=== PATIENT | female | born 1945 | race Caucasian/White ===

== ENCOUNTER 2024-07-28 13:35 | Inpatient (IN) | payer MEDICARE, MEDICAID, SELFPAY ==
[2024-07-28] VITALS (25 sets, daily range): BP systolic 169–186; BP diastolic 77–93; PULSE 91–104; RESP 19–24; TEMP 36.4–36.9; O2SAT 94–98; BMI 19.5
--- NOTE | 2024-07-28 13:40 | XR_ITS ---
WS: [id number] Exam: XR abdomen 1V* [id number] Date/Time of Exam: 07/28/2024 1:48 PM Reason For Exam: abd pain No acute bowel obstruction or pneumoperitoneum. No sign of organ enlargement. An opaque catheter appe ars to be looped in the pelvis. Significance is undetermined. Signs of prior cholecystectomy. Single mildly dilated bowel loop seen in the RIGHT abdomen and pelvis that might represent localized ileus. Degenerative changes and mild levoscoliosis of the lumbar spine. XR/XR abdomen 1V* [id number] IMPRESSION: 1. Single dilated bowel loop in the RIGHT lower abdomen and pelvis that might r epresent localized ileus. No acute process noted at this time.
--- NOTE | 2024-07-28 14:02 | ED_ITS ---
HPI - GI Bleed 2 General: Chief complaint: GI Bleed Stated complaint: bloody stool Time Seen by Provider: 07/28/24 13:37 History of Present Illness: 78-year-old female with history of end-s tage renal disease on peritoneal dialysis, light chain amyloidosis, dementia, anxiety, type 2 diabetes, SLE, history of bowel resection and short gut, who presents to the emergency room by ambulance from [facility] with abdominal pain, nausea, some vomiting and concern for black stools with possible blood. She is oriented to herself. Not to place. She does have dementia listed in her history. No focal motor deficits. Currently she complains of some mild pain in her left lower abdomen. She says this is associated with her peritoneal dialysis catheter. Worse at night. Had improved after they pulled some fluid off recently. Related Data Home Medications Medication Instructions Recorded Confirmed acetaminophen 325 mg tablet 650 mg PO QID PRN Pain 07/28/24 07/28/24 alprazolam 0.5 mg tablet 0.5 mg PO BEDTIME PRN Anxiety 07/28/24 07/28/24 amlodipine 10 mg tablet 10 mg PO DAILY 07/28/24 07/28/24 aspirin 81 mg chewable tablet 81 mg PO DAILY 07/28/24 07/28/24 bisacodyl 10 mg rectal suppository See Rx Instructions .Route 07/28/24 07/28/24 (Dulcolax (bisacodyl)) .COMPLEX PRN Constipation diphenoxylate-atropine 2.5 1 tab PO QID PRN Diarrhea/loose 07/28/24 07/28/24 mg-0.025 mg tablet stools gentamicin 0.1 % topical cream See Rx Instructions .Route .COMPLEX 07/28/24 07/28/24 heparin (porcine) 1,000 unit/mL See Rx Instructions .Route .COMPLEX 07/28/24 07/28/24 injection solution hydralazine 25 mg tablet 25 mg PO Q6H PRN bp 07/28/24 07/28/24 hydroxyzine HCl 25 mg tablet 25 mg PO BEDTIME 07/28/24 07/28/24 qhbumi-nfrrhdkv-ssqhgcm 1 cap PO TID 07/28/24 07/28/24 6,000-19,000-30,000 unit capsule,delayed rel (Creon) menthol 0.44 %-zinc oxide 20.6 % See Rx Instructions .Route .COMPLEX 07/28/24 07/28/24 topical ointment (Calmoseptine) pantoprazole 40 mg tablet,delayed 40 mg PO QAM 07/28/24 07/28/24 release potassium chloride 20 mEq 20 meq PO DAILY 07/28/24 07/28/24 tablet,extended release(part/cryst) promethazine 25 mg tablet 25 mg PO BID PRN nausea/emesis 07/28/24 07/28/24 sertraline 25 mg tablet 25 mg PO BEDTIME 07/28/24 07/28/24 sodium bicarbonate 650 mg tablet 1,300 mg PO DAILY 07/28/24 07/28/24 tizanidine 2 mg tablet 2 mg PO Q8H PRN Spasms 07/28/24 07/28/24 vitamin B complex-vitamin C-folic 1 tab PO DAILY 07/28/24 07/28/24 acid 0.8 mg tablet (Nephro-Cayden) Allergies Allergy/AdvReac Type Severity Reaction Status Date / Time cyclobenzaprine Allergy Unknown Verified 07/28/24 13:55 hydrocodone Allergy Unknown Verified 07/28/24 13:55 lisinopril Allergy Unknown Verified 07/28/24 13:55 ondansetron Allergy Unknown Verified 07/28/24 13:55 Ppvyirm-UDH-EhP Reductase Allergy Unknown Verified 07/28/24 13:55 Inhibitor codeine sulfate Allergy Unknown Uncoded 07/28/24 13:55 Review of Systems 2 Narrative: Constitutional symptoms: Negative except as documented in HPI. Skin symptoms: Negative except as documented in HPI. Eye symptoms: Negative except as documented in HPI. ENMT symptoms: Negative except as documented in HPI. Respiratory symptoms: Negative except as documented in HPI. Cardiovascular symptoms: Negative except as documented in HPI. Gastrointestinal symptoms: Negative except as documented in HPI. Genitourinary symptoms: Negative except as documented in HPI. Musculoskeletal symptoms: Negative except as documented in HPI. Neurologic symptoms: Negative except as documented in HPI. Psychiatric symptoms: Negative except as documented in HPI. Endocrine symptoms: Negative except as documented in HPI. Physical Exam 2 Narrative: EXAM NARRATIVE: General: Alert, no acute distress. Skin: Warm, dry. Head: Normocephalic, atraumatic. Neck: Supple, trachea midline. Eye: Extraocular movements are intact. Ears, nose, mouth and throat: mucosa moist. Cardiovascular: Regular, Normal peripheral perfusion. Respiratory: Lungs are clear to auscultation, respirations are non-labored, breath sounds are equal, Symmetrical chest wall expansion. Gastrointestinal: Soft, Nontender, Non distended Musculoskeletal: Normal ROM, no deformity. Neurological: Alert and oriented to herself but not place, No focal neurological deficit observed. Psychiatric: Cooperative, appropriate mood & affect. Course 2 Vital Signs: Vital signs: Vital Signs Temperature 97.5 F L 07/28/24 13:38 Pulse Rate 91 07/28/24 13:38 Respiratory Rate 24 H 07/28/24 13:38 Blood Pressure 177/80 07/28/24 15:25 Pulse Oximetry 95 07/28/24 15:25 Oxygen Delivery Me thod Room Air 07/28/24 13:38 MDM - GI Bleed Medical Decision Making Medical decision making: Differential diagnosis including but not limited to and based on the above HPI, review of systems and physical exam: In a patient with upper GI bleeding would have concern for upper gi bleed from varices or ulcer. Concern for anemia. Concern for liver disease. concern for anticoagulation. Orders placed to evaluate differential diagnosis based on the above differential, HPI and physical exam Abdomen x-ray: Nonspecific bowel gas pattern. There is a pocket of air in the right upper quadrant. No evidence of free air or obstruction. This was reviewed and interpreted by myself the emergency room physician. I also reviewed the radiology report. Lab Review: Laboratory results were reviewed and interpreted by myself the emergency room physician. Patient does have some leukocytosis with a white count of 16,000. Hemoglobin is 9.6. I do not have any previous lab work so I have nothing to compare to if she has any new anemia. Potassium is low at 2.8. However she is on dialysis so I am going to defer to hospitalist or agricultural economics teacher on replacement of this. BUN and creatinine are 48 and 5.1. This could be her baseline but again I do not have any comparison labs. I reviewed the patient's medical record. Reexamination: Patient remained stable. No increased work of breathing. No altered mental status. No focal motor deficits. Consultation: I spoke with Dr. Archibald who is on-call for the hospitalist service. He agrees to admission to observation. Assessment and plan: End-stage renal disease on peritoneal dialysis Upper GI bleeding Hypokalemia ?Difficult to say if she actually has had an upper GI bleed. Occult was negative here. Unknown baseline labs so observing and recheck labs. IV Protonix given here in the emergency room -I discussed the patient with the hospitalist on-call who is admitting the patient. - Discussed findings and plan with patient. Answered any questions. - All laboratory values were reviewed and interpreted personally by myself, the ER physician - All imaging was reviewed and interpreted personally by myself, the ER physician. - Evaluation and treatment of this problem were appropriate in the emergency setting Lab Data 07/28/24 14:11 07/28/24 14:11 Radiology Impressions Abdomen X-Ray 07/28/24 13:40 IMPRESSION: 1. Single dilated bowel loop in the RIGHT lower abdomen and pelvis that might represent localized ileus. No acute process noted at this time. Laboratory Results WBC 16.36 10^3/uL (3.29-11.43) H 07/28/24 14:11 RBC 2.90 10^6/uL (3.85-5.65) L 07/28/24 14:11 Hgb 9.60 g/dL (11.27-16.99) L 07/28/24 14:11 Hct 28.7 % (36-47) L 07/28/24 14:11 MCV 99.0 fl (85-98) H 07/28/24 14:11 MCH 33.1 pg (27-33) H 07/28/24 14:11 MCHC 33.4 g/dL (30-55) 07/28/24 14:11 RDW 15.2 % (12.1-15.1) H 07/28/24 14:11 Plt Count 576 10^3/cmm (157-399) H 07/28/24 14:11 MPV 10.1 fL (7.4-10.4) 07/28/24 14:11 Neut % (Auto) 76.7 % 07/28/24 14:11 Lymph % (Auto) 13.1 % 07/28/24 14:11 Lewis % (Auto) 9.0 % 07/28/24 14:11 Eos % (Auto) 0.2 % 07/28/24 14:11 Baso % (Auto) 0.2 % 07/28/24 14:11 Neut # (Auto) 12.53 10^3/uL (1.8-7.7) H 07/28/24 14:11 Lymph # (Auto) 2.2 10^3/uL (0.8-4.8) 07/28/24 14:11 Lewis # (Auto) 1.5 10^3/uL (0.2-0.9) H 07/28/24 14:11 Eos # (Auto) 0.0 10^3/uL (0.0-0.8) 07/28/24 14:11 Baso # (Auto) 0.0 10^3/uL (0.0-0.1) 07/28/24 14:11 Nucleated RBC % (auto) 0.8 % 07/28/24 14:11 Nucleated RBCs # 0.1 /100WBC 07/28/24 14:11 PT 15.50 SECONDS (12.1-14.9) H 07/28/24 14:11 INR 1.19 (0.8-1.2) 07/28/24 14:11 APTT 34.1 SECONDS (23.9-36.7) 07/28/24 14:11 Sodium 136 mmol/L (136-145) 07/28/24 14:11 Potassium 2.8 mmol/L (3.5-5.1) L* 07/28/24 14:11 Chloride 95 mmol/L (98-107) L 07/28/24 14:11 Carbon Dioxide 26 mmol/L (22-29) 07/28/24 14:11 Anion Gap 17.8 (5-19) 07/28/24 14:11 BUN 48 mg/dL (8-23) H 07/28/24 14:11 Creatinine 5.1 mg/dL (0.5-0.9) H 07/28/24 14:11 GFR Calculation Not Reportable 07/28/24 14:11 Glucose 113 mg/dL (65-115) 07/28/24 14:11 Calculated Osmolality 295 mOsm/kg (285-295) 07/28/24 14:11 Lactic Acid 1.9 mmol/L (0.5-2.2) 07/28/24 14:11 Calcium 8.9 mg/dL (8.5-10.5) 07/28/24 14:11 Phosphorus 3.5 mg/dL (2.5-4.5) 07/28/24 14:11 Magnesium 1.4 mg/dL (1.7-2.3) L 07/28/24 14:11 Total Bilirubin 0.4 mg/dL (0.15-1.2) 07/28/24 14:11 AST 35 U/L (0-32) H 07/28/24 14:11 ALT 21 U/L (0-33) 07/28/24 14:11 Alkaline Phosphatase 125 U/L (35-105) H 07/28/24 14:11 Total Protein 7.1 g/dL (6.6-8.7) 07/28/24 14:11 Albumin 2.7 g/dL (3.5-5.2) L 07/28/24 14:11 Globulin 4.4 g/dL (1.3-4.6) 07/28/24 14:11 Lipase 428 U/L (13-60) H 07/28/24 14:11 Blood Type A Negative 07/28/24 14:11 Rho(D) Type Rh negative 07/28/24 14:11 Antibody Screen Negative 07/28/24 14:11 All radiology interpretation(s) finalized by discharge Discharge Plan Discharge Patient Disposition: Placed in Observation Admit Provider: Luke Archibald Clinical Impression: Upper gastrointestinal hemorrhage, End stage renal disease on dialysis, Dementia, Type 2 diabetes mellitus, Hypertension Coding Level of Care Code ED Young Adult Librarian for Sergio Ramirez
[2024-07-28 14:24] LABS: Basophils % 0.2 %; Eosinophils % 0.2 %; Hematocrit 28.7 % (36-47); Lymphocytes # 2.2 10^3/uL (0.8-4.8); Lymphocytes % 13.1 %; Mean Corpuscular HGB Conc 33.4 g/dL (30-55); Mean Corpuscular Hemoglobin 33.1 pg (27-33); Mean Platelet Volume 10.1 fL (7.4-10.4); Monocytes # 1.5 10^3/uL (0.2-0.9); Neutrophils # 12.53 10^3/uL (1.8-7.7); Neutrophils % 76.7 %; Nucleated Red Blood Cells # 0.1 /100WBC; Nucleated Red Blood Cells % 0.8 %; Platelet Count 576 10^3/cmm (157-399); Red Cell Distribution Width 15.2 % (12.1-15.1); White Blood Count 16.36 10^3/uL (3.29-11.43)
[2024-07-28 14:46] LABS: INR 1.19 (0.8-1.2)
[2024-07-28 14:47] LABS: Lactic Sepsis W/Reflex 1.9 mmol/L (0.5-2.2); Partial Thromboplastin Time 34.1 SECONDS (23.9-36.7)
[2024-07-28 14:48] LABS: Alanine Aminotransferase 21 U/L (0-33); Albumin Level 2.7 g/dL (3.5-5.2); Alkaline Phosphatase 125 U/L (35-105); Anion Gap 17.8 (5-19); Aspartate Amino Transferase 35 U/L (0-32); Blood Urea Nitrogen 48 mg/dL (8-23); Calcium 8.9 mg/dL (8.5-10.5); Carbon Dioxide 26 mmol/L (22-29); Chloride 95 mmol/L (98-107); Creatinine Clr Calc Pharmacy 7.4955; Globulin 4.4 g/dL (1.3-4.6); Glucose 113 mg/dL (65-115); Magnesium 1.4 mg/dL (1.7-2.3); Osmolality Calculated 295 mOsm/kg (285-295); Phosphorus 3.5 mg/dL (2.5-4.5); Sodium 136 mmol/L (136-145); Total Bilirubin 0.4 mg/dL (0.15-1.2); Total Protein 7.1 g/dL (6.6-8.7)
[2024-07-28 14:50] LABS: Potassium 2.8 mmol/L (3.5-5.1)
[2024-07-28 14:55] LABS: Lipase 428 U/L (13-60)
--- NOTE | 2024-07-28 15:31 | PC.NURSE ---
PT HAD SMALL BROWN BM AT BEDSIDE. NO BLOOD NOTED. HEMOCCULT TEST NEGATIVE. DR. OCASIO NOTIFIED
--- NOTE | 2024-07-28 15:49 | CTR_ITS ---
PROCEDURE INFORMATION: Exam: CT Abdomen And Pelvis With Contrast Exam date and time: 07/28/2024 4:10 PM Age: 78 years old Clinical indication: Abdominal pain TECHNIQUE: Imaging protocol: Computed tomography of the abdomen and pelvis with contrast. Radiation optimization: All CT scans at this facility use at least one of these dose optimization techniques: automated exposure control; mA and/or kV adjustment per patient size (includes targeted exams where dose is matched to clinical indication); or iterative reconstruction. Contrast material: OMNI 350; Contrast volume: 75 ml; Contrast route: INTRAVENOUS (IV); COMPARISON: CR XR abdomen 1V* [id number] 07/28/2024 1:51 PM RADIATION DOSE METRICS: Total DLP (mGy-cm): 305.37 FINDINGS: Tubes, catheters and devices: Peritoneal dialysis catheter is in position through the left abdomen. This is likely the cause of the perihepatic and perisplenic fluid collections. Lungs: Scarring in the left lung base. Liver: The liver is unremarkable. Gallbladder and biliary ducts: Post cholecystectomy. Pancreas: Pancreas is unremarkable. No ductal dilation or peripancreatic inflammation. Spleen: The spleen is unremarkable. Adrenal glands: Adrenal glands are unremarkable. Kidneys and ureters: No hydronephrosis or nephrolithiasis. The left kidney is smaller than the right. Bilateral simple renal cysts are present, as well as other subcentimeter hypodensities which are too small to characterize. Stomach and bowel: Stomach is not fully distended. Small hiatal hernia. Small and large bowel are normal in caliber without evidence of obstruction. There is fluid in the colon indicating diarrhea. Postop changes in the bowel with intact anastomotic sites. Appendix: Appendix is not visualized. Intraperitoneal space: Small perihepatic fluid collection. Small perisplenic fluid collection. There is no free intraperitoneal gas. Mild haziness to the mesentery likely secondary to the peritoneal dialysis. Vasculature: There is no aortic aneurysm. There is severe atherosclerotic disease. Lymph nodes: No pathologically enlarged lymph nodes (by short axis size criteria). Urinary bladder: No focal wall thickening of the urinary bladder. Reproductive: There has been a hysterectomy. No adnexal cysts or masses are identified. Bones/joints: No acute osseous abnormality. There is degenerative disease of the spine. Soft tissues: Unremarkable. CT/CT abdomen pelvis w con* [id number] IMPRESSION: 1. No acute findings. 2. Peritoneal dialysis with small perihepatic and perisplenic fluid collections. COMMENTS: Consistent with the [employer]'s Incidental Findings Committee white paper (J Am Luc Radiol 2018): Any incidental renal lesion less than 1 cm or classified as too small to characterize, or any incidental cystic renal lesion characterized as simple-appearing, is likely benign. No follow-up imaging is recommended for these lesions per consensus recommendations based on imaging criteria.
[2024-07-28] MEDS: iohexol 350 mg/mL 500 mL Btl (per mL) IV (16:12)
--- NOTE | 2024-07-28 16:20 | PC.NURSE ---
Per nurse at [facility], staff typically starts her PD regimen at 20:00.
[2024-07-28] MEDS: pantoprazole 40 mg SDV 80 MG IVP (16:24)
[2024-07-28 16:26] LABS: C Reactive Protein 32.7 mg/L (0.0-4.9)
[2024-07-28 16:33] LABS: Procalcitonin 0.25 ng/mL (0-0.5)
--- NOTE | 2024-07-28 16:36 | P.HP_ITS ---
Providers/Chief Complaint 2 Admitting Physician: Luke Archibald MD Primary Care Provider: Asif Grijalva Chief Complaint: bloody stool History of Present Illness Ashleigh Adan is a 78 year old female with a past medical history of colon cancer status post colectomy, end-stage renal disease on peritoneal dialysis, light chain amyloidosis, anxiety disorder, history of hepatitis C, history of type 2 diabetes mellitus, history of lupus, who presents to [facility] due to abdominal pain, nausea, vomiting, diarrhea, complaints of bloody stools, complaints of coffee-ground emesis, black tarry stools with blood throughout the last week. Currently patient is alert to person, to place, not to time she follows all commands. Currently patient is complaining of weakness, fatigue, abdominal pain in the lower abdomen. She denies any fevers, no chills, no lightheadedness, no dizziness. Does report poor appetite. She does report she has had a appendectomy. Reports bloody stools. Reports black tarry vomit. Spoke to [facility], [facility], nursing staff at [facility] report that she has been at [facility] since September, she was hospitalized at an outside hospital for reasons unknown, she did leave [place] from [facility] sometime thereafter, and eventually got readmitted due to weakness, since being at the [facility], for the last 2 weeks she has been complaining of nausea, vomiting, abdominal pain weakness, fatigue she has had intermittent coffee-ground emesis, black tarry stools at times, this morning she continued to have abdominal pain so she wanted to come to [facility] for further evaluation Review of Systems 2 Const: Denies: fever(s) or chills Eyes: Denies: change in vision Card: Denies: chest pain Resp: Denies: dyspnea GI: Reports: abdominal pain, nausea and vomiting : Denies: flank pain Musc: Denies: neck pain Neuro: Denies: headache(s) Medications/Allergies Home Medications Medication Instructions Recorded Confirmed Last Taken Type acetaminophen 325 mg tablet 650 mg PO QID PRN Pain 07/28/24 07/28/24 07/24/24 History alprazolam 0.5 mg tablet 0.5 mg PO BEDTIME PRN Anxiety 07/28/24 07/28/24 07/24/24 History amlodipine 10 mg tablet 10 mg PO DAILY 07/28/24 07/28/24 07/28/24 History aspirin 81 mg chewable tablet 81 mg PO DAILY 07/28/24 07/28/24 07/28/24 History bisacodyl 10 mg rectal suppository See Rx Instructions .Route 07/28/24 07/28/24 Unknown History (Dulcolax (bisacodyl)) .COMPLEX PRN Constipation diphenoxylate-atropine 2.5 1 tab PO QID PRN Diarrhea/loose 07/28/24 07/28/24 07/23/24 History mg-0.025 mg tablet stools gentamicin 0.1 % topical cream See Rx Instructions .Route .COMPLEX 07/28/24 07/28/24 07/27/24 History heparin (porcine) 1,000 unit/mL See Rx Instructions .Route .COMPLEX 07/28/24 07/28/24 07/20/24 History injection solution hydralazine 25 mg tablet 25 mg PO Q6H PRN bp 07/28/24 07/28/24 Unknown History hydroxyzine HCl 25 mg tablet 25 mg PO BEDTIME 07/28/24 07/28/24 07/27/24 History ptycyq-cbsqgsfz-bqlwiah 1 cap PO TID 07/28/24 07/28/24 07/28/24 History 6,000-19,000-30,000 unit capsule,delayed rel (Creon) menthol 0.44 %-zinc oxide 20.6 % See Rx Instructions .Route .COMPLEX 07/28/24 07/28/24 07/27/24 History topical ointment (Calmoseptine) pantoprazole 40 mg tablet,delayed 40 mg PO QAM 07/28/24 07/28/24 07/28/24 History release potassium chloride 20 mEq 20 meq PO DAILY 07/28/24 07/28/24 07/28/24 History tablet,extended release(part/cryst) promethazine 25 mg tablet 25 mg PO BID PRN nausea/emesis 07/28/24 07/28/24 07/25/24 History sertraline 25 mg tablet 25 mg PO BEDTIME 07/28/24 07/28/24 07/27/24 History sodium bicarbonate 650 mg tablet 1,300 mg PO DAILY 07/28/24 07/28/24 07/28/24 History tizanidine 2 mg tablet 2 mg PO Q8H PRN Spasms 07/28/24 07/28/24 07/24/24 History vitamin B complex-vitamin C-folic 1 tab PO DAILY 07/28/24 07/28/24 07/28/24 History acid 0.8 mg tablet (Nephro-Cayden) Allergies Allergy/AdvReac Type Severity Reaction Status Date / Time cyclobenzaprine Allergy Unknown Verified 07/28/24 13:55 hydrocodone Allergy Unknown Verified 07/28/24 13:55 lisinopril Allergy Unknown Verified 07/28/24 13:55 ondansetron Allergy Unknown Verified 07/28/24 13:55 Uvkgkdg-JHG-FhL Reductase Allergy Unknown Verified 07/28/24 13:55 Inhibitor codeine sulfate Allergy Unknown Uncoded 07/28/24 13:55 PFSH Acute 2 PFSH: Medical History (Updated 07/28/24 @ 16:41 by Luke Archibald MD) History of colon cancer Type 2 diabetes mellitus Surgical History (Updated 07/28/24 @ 16:39 by Luke Archibald MD) History of colectomy Social History (Updated 07/28/24 @ 16:39 by Luke Archibald MD) Smoking and tobacco/nicotine status: never used tobacco/nicotine Alcohol intake: never Substance/Drug Use: never Vitals/I&O/Wt Last Vital Signs Temp 97.5 F L 07/28/24 13:38 Pulse 91 07/28/24 13:38 Resp 24 H 07/28/24 13:38 BP 177/80 07/28/24 15:25 Pulse Ox 95 07/28/24 15:25 O2 Del Method Room Air 07/28/24 13:38 Weight last 48 hrs Weight 49.895 kg Physical Exam 2 Const: COMMON NORMALS: no acute distress and patient oriented x3 HENMT: COMMON NORMALS: normocephalic HEAD & SCALP: normocephalic Resp: COMMON NORMALS: normal respiratory effort, No retractions, No use of accessory muscles and clear to auscultation bilaterally AUSCULTATION: clear to auscultation bilaterally Cardio: COMMON NORMALS: regular rate, regular rhythm, S1 normal heart sound present and S2 normal heart sound present RATE: regular rate RHYTHM: r egular rhythm HEART SOUNDS: S1 normal heart sound present and S2 normal heart sound present GI: OTHER: Abdomen is soft, slightly distended, good bowel sounds, does have diffuse tenderness to palpation, no guarding, no rebound, rigidity Extremity: COMMON NORMALS: no calf tenderness and no pedal edema Neuro: COMMON NORMALS: patient oriented x3, CN's II-XII intact bilaterally and moves all extremities Psych: COMMON NORMALS: mental status grossly normal Data 07/28/24 14:11 07/28/24 14:11 Micro: Microbiology 07/28/24 14:11 Blood Culture - Preliminary Blood SPECIMEN COLLECTED 07/28/24 13:55 Blood Culture - Preliminary Blood SPECIMEN COLLECTED A&P Assessment and plan (1) GI bleed: (2) Abdominal pain: (3) Leukocytosis: (4) Acute anemia: Plan GI bleed -Complaints of black tarry stools, vomiting coffee-ground emesis -She is on aspirin -Hemoglobin 9.6 Plan -Monitor closely -Monitor hemoglobin every 6 hours -Protonix -Carafate -Transfuse hemoglobin if less than 7 -Full code -SCDs for DVT prophylaxis Abdominal pain -Elevated leukocytosis, elevated lipase, elevated CRP Plan -CT scan abdomen pelvis with IV contrast Acute anemia # Iron studies, ferritin, Hemoccult stool Type 2 diabetes mellitus, low-dose sliding scale History of PD dialysis, PD catheter in place, start PD tonight Attestations 2 Medical Necessity Statement*: Patient requires hospitalization, inpatient, greater than 2 midnights, for GI bleed, abdominal pain, leukocytosis, and anemia Diagnoses GI bleed K92.2 Abdominal pain R10.9 Leukocytosis D72.829 Acute anemia D64.9
--- NOTE | 2024-07-28 16:45 | XRR_ITS ---
PROCEDURE INFORMATION: Exam: XR Chest Exam date and time: 07/28/2024 6:45 PM Age: 78 years old Clinical indication: Shortness of breath; Additional info: SOB TECHNIQUE: Imaging protocol: Radiologic exam of the chest. Views: 1 view. COMPARISON: CT abdomen pelvis w con* [id number] 07/28/2024 4:10 PM FINDINGS: Lungs: Diffuse interstitial disease. Calcified granulomas. No focal consolidation or other acute appearing pulmonary opacity. Pleural spaces: No pleural effusion or pneumothorax noted. Heart/Mediastinum: There is no cardiomegaly. Bones/joints: No acute osseous abnormality. Intraperitoneal space: There is no free intraperitoneal gas. XR/XR chest 1V portable [id number] IMPRESSION: No acute cardiopulmonary disease.
[2024-07-28 16:48] LABS: Gamma Glutamyl Transferase 55 U/L (5-36)
[2024-07-28 17:06] LABS: Glucose Point of Care 86 mg/dL (70-110)
[2024-07-28] MEDS: sucralfate 1 gm/10 mL Oral Liq UDC PO ×2 (17:08→22:45)
[2024-07-28] MEDS: sodium chloride 0.9% 1,000 ML 75 ML IV (17:09)
[2024-07-28] MEDS: lidocaine 1% 5 ML in potassium chloride premix 100 ML 26.25 ML IV (17:10)
[2024-07-28 17:39] LABS: Chol HDL Ratio 2.48 mg/dL (0.0-4.40); Cholesterol 176 mg/dL (0-200); HDL Cholesterol 71 mg/dL (60-100); Iron 43 ug/dL (37-145); LDL Cholesterol Calculated 87 mg/dL (50-129); LDL HDL Ratio 1.23 RATIO (0.00-3.22); Percent Saturation 26.8 % (20-50); Thyroid Stimulating Hormone 2.09 uIU/mL (0.27-4.20); Total Iron Binding Capacity 160 mcg/dl; Triglycerides 90 mg/dL (0-150); Unsaturated Iron Binding 117 ug/dL (112-347)
[2024-07-28 17:52] LABS: Ferritin 4000 ng/mL (15-150)
--- OUTSIDE RECORDS SUMMARY | 2024-07-28 18:50 | XMS_ITS ---
Author Name Favian Kilgore Address [address] [place], [place] [id number] Phone [phone] Organization [facility], NA DOCUMENT DISCLAIMER Multiple document versions may exist, please be sure you review the latest version. The information in the [facility] Progress Note Document represents a providers documented clinical note containing certain health and medical information. It may not contain the complete medical history for the patient and should be independently verified. The represented time in the document is Eastern Time PROVIDER ROUNDING NOTE PD Patient:?Ashleigh?Loco,?1945,?78y,?F Dialysis?Location:?[facility] Attending?Storage Architect:?Favian?Jame Service?Date:?04/09/2024 Service?Provider:?Favian?Jame,? I?met?face?to?face?with?the?patient?today. OVERVIEW The?patient?presented?with?ESRD Primary?cause?of?renal?failure:?Other?secondary?hypertension Comments:?some?swelling.?BP?up.??Get?dry?wt.?to?12 6-127.??On?amlodipine?and?will?keep?legs?elevated.? Medications?and?labs?reviewed. HOME?MEDICATIONS Home?Medications:? ??Creon?(oileya-wzcxvixa-rivlall)?6,000-19,000-30,000?unit,?by?mo uth,?Take?1?capsule?three?times?a?day?with?meals ??gabapentin?100?mg,?by?mouth,?Take?1-2?capsule?at ?bedtime?as?needed?for?pain?Take?PRN?only?to?reduce?balance?issues ??Culturelle?(lactobacillus?rhamnosus?gg)?10?billion?cell,&# 160;by?mouth,?Take?1?capsule?once?a?day ??amlodipine?5?mg,?by?mouth,?Take?1?tablet?once a?day?hold?5/2 ??Protonix?(pantoprazole)?40?mg,?by?mouth,?Take?1?tablet?once?a?day ??Lomotil?(diphenoxylate-atropine)?2.5-0.025?mg,?Take?1?-&#1 60;2?tablets?by?mouth?QID ??Glucosamine?Chondroitin?MaxStr?(oriijgwzusd-ohxviqqke-kth?c-mn)&#160 ;500-400?mg,?by?mouth,?1?capsule?once?a?day ??melatonin?5?mg,?by?mouth,?Take?3?capsule?every night ??Jus's?leg?cramp?pills?(OTC)?2?tablet,?by?mouth,?2?tablet?three?times?a?day ??clonidine?HCl?(clonidine?hcl)?0.2?mg,?by?mouth,? Take?1?tablet?three?times?a?day?as?directed ??alprazolam?0.5?mg,?by?mouth,?Take?1/2?tablet?every?night?as?needed ??promethazine?25?mg,?by?mouth,?Take?1?tablet?twice?a?day?as?needed?for?nausea Allergies:? ??codeine,?lisinopril,?Zofran LAST?HOSPITALIZATION Discharge?Diagnosis:?K65.9?Peritonitis,?unspecified Admission?Date?12/29/23 Discharge?Date?01/01/24 VITALS?ASSESSMENT Vitals?measured?in-clinic. BP?Sit ??03/12/2024:?171/86 ??02/13/2024:?172/70 ??01/23/2024:?134/68 Weight?(kg) ??03/12/2024:?57.7 ??02/13/2024:?57.2 ??01/23/2024:?52.5 Temp ??03/12/2024:?98.3 Respirations ??03/12/2024:?17 Pulse ??03/12/2024:?61 Height ??11/26/2023:?5'?3'' TREATMENT?ASSESSMENT Blood?pressure?controlled.?No?changes?indicated. FLUID?ASSESSMENT Fluid?status?acceptable.?Weight?gain?acceptable.?No?changes?indicated. DIALYSIS?PRESCRIPTION ??CCPD?7x?Week?Start?date:?03/12/24 ??Cycles:?4 ??Cycler?Fill:?1999 ??Avg?Dwell:?1:40 ??Total?Cycler:?540 ??Last?Fill:?1999 ??Day?Exch:?0 ??Day?Fill:? ??EDW:?56 ??Rx?updated?on:?03/12/2024 ADEQUACY?ASSESSMENT Adequacy?target?met.?Prescription?compliance?acceptable.?No?changes?indicated.? PD?Kt/V,?Total ??02/13/2024:?2.4 ??11/26/2023:?2.53 ACCESS?ASSESSMENT ??Access?Type:?PDCatheter ??Access?SubType:?Double?Cuff?Coiled ??Access?Status:?Active?(In?Use)?-?02/20/2018 ??Access?Location:?Left?Lower?Quadrant ??Placed:?10/04/2017 Access?perfect.?Exit?site?looks?clean.?Effluent?clear. ANEMIA?ASSESSMENT HGB?at?goal.?Iron?parameters?acceptable.?OZZY?dose?adequate.& #160;No?changes?indicated.? HGB,?TSAT ??03/12/2024:?11.8,?- ??02/13/2024:?9.9,?50.0 ??01/23/2024:?10.0,?38.0 ?? Ferritin ??01/23/2024:?2448.0 ??10/19/2023:?1470.0 Mircera,?Sub?Q?(mcg) ??02/20/2024:?50 BMM?ASSESSMENT PTH?controlled.?Calcium?controlled.?Phosphorus?controlled.?No?loren nges?indicated.? PTH,?Intact ??01/23/2024:?194.0 ??10/19/2023:?165.0 ?? Calcium,?Phosphorus ??02/13/2024:?8.9,?4.3 ??01/23/2024:?9.5,?4.1 ??12/18/2023:?9.2,?4.0 NUTRITION?ASSESSMENT Comments:?hx?of?pancreatitis,??GI?illness.??Appetite?is?better.? Potassium?controlled.?Albumin?below?goal.?No?changes?indicated. Potassium,?Albumin ??03/12/2024:?-,?3.3 ??02/13/2024:?4.3,?3.0 ??01/23/2024:?5.7,?2.8 PHYSICAL?EXAM Exam?Performed.?Vital?Signs?Reviewed.?Lungs?-?Clear.?CV&#160 ;-?RRR.?EXT?-?2+?edema. DIAGNOSIS Chief?Complaint:?N18.6?End?stage?renal?disease Patient?data?updated?04/09/2024?at?1:08?PM Signed?By:?Jame,?Favian,???on?04/09/2024?1:21:20 PM END OF DOCUMENT
--- OUTSIDE RECORDS SUMMARY | 2024-07-28 18:50 | XMS_ITS ---
Author Name Favian Kilgore Address [address] [place] [address] Phone [phone] Organization [facility], NA DOCUMENT DISCLAIMER Multiple document versions may exist, please be sure you review the latest version. The information in the [facility] Progress Note Document represents a providers documented clinical note containing certain health and medical information. It may not contain the complete medical history for the patient and should be independently verified. The represented time in the document is Eastern Time PROVIDER ROUNDING NOTE PD Patient:?Ashleigh?Loco,?1945,?78y,?F Dialysis?Location:?[facility] Attending?Hat Lacer:?Jasmine Service?Date:?07/09/2024 Service?Provider:?Favian?Jame,? I?met?face?to?face?with?the?patient?today. OVERVIEW The?patient?presented?with?ESRD Primary?cause?of?renal?failure:?Other?secondary?hypertension Comments:?an?SNF.?can?do?telehealth.?working?on?nutrition. Medications?and?labs?reviewed. LAST?HOSPITALIZATION Discharge?Diagnosis:?H53.2?Diplopia N30.00?Acute?cystitis?without?hematuria Admission?Date?05/14/24 Discharge?Date?05/19/24 VITALS?ASSESSMENT Vitals?measured?in-clinic. BP?Sit ??06/19/2024:?118/50 ??05/22/2024:?168/69 ??04/16/2024:?173/78 Weight?(kg) ??06/19/2024:?51.53 ??04/16/2024:?58 Temp ??06/19/2024:?97.4 Respirations ??06/19/2024:?17 Pulse ??06/19/2024:?76 TREATMENT?ASSESSMENT Blood?pressure?controlled.?No?changes?indicated. FLUID?ASSESSMENT Fluid?status?acceptable.?Weight?gain?acceptable.?No?changes?indicated. DIALYSIS?PRESCRIPTION ??CCPD?7x?Week?Start?date:?05/05/24 ??Cycles:?4 ??Cycler?Fill:?1999 ??Avg?Dwell:?1:40 ??Total?Cycler:?540 ??Last?Fill:?1999 ??Day?Exch:?0 ??Day?Fill:? ??EDW:?60 ??Rx?updated?on:?05/05/2024 ADEQUACY?ASSESSMENT Adequacy?target?met.?Prescription?compliance?acceptable.?No?changes?indicated.? PD?Kt/V,?Total ??04/16/2024:?2.57 ??02/13/2024:?2.4 ACCESS?ASSESSMENT ??Access?Type:?PDCatheter ??Access?SubType:?Double?Cuff?Coiled ??Access?Status:?Active?(In?Use)?-?02/20/2018 ??Access?Location:?Left?Lower?Quadrant ??Placed:?10/04/2017 Access?perfect.?Exit?site?looks?clean.?Effluent?clear. ANEMIA?ASSESSMENT HGB?at?goal.?Iron?parameters?acceptable.?OZZY?dose?adequate.& #160;No?changes?indicated.? HGB,?TSAT ??06/19/2024:?9.2,?31.0 ??05/22/2024:?10.8,?56.0 ??04/16/2024:?11.6,?38.0 ?? Ferritin ??04/16/2024:?1296.0 ??01/23/2024:?2448.0 Active?Orders:?Iron?Sucrose?(Venofer)?200?mg?PRN.?Mircera 75?mcg?Once. BMM?ASSESSMENT PTH?controlled.?Calcium?controlled.?Phosphorus?elevated.?Counseled&#16 0;pt?on?meds?adherence.?Referred?to?dietitian.? PTH,?Intact ??04/16/2024:?330.0 ??01/23/2024:?194.0 ?? Calcium,?Phosphorus ??06/19/2024:?8.3,?6.4 ??05/22/2024:?9.4,?4.1 ??04/16/2024:?9.0,?4.5 NUTRITION?ASSESSMENT Comments:?hx?of?pancreatitis,??stable.? Potassium?controlled.?Albumin?below?goal.?No?changes?indicated. Potassium,?Albumin ??06/19/2024:?3.4,?2.6 ??05/22/2024:?3.6,?3.5 ??04/16/2024:?3.5,?3.3 PHYSICAL?EXAM Exam?Performed.?Vital?Signs?Reviewed.?Lungs?-?Clear.?CV -?RRR. DIAGNOSIS Chief?Complaint:?N18.6?End?stage?renal?disease Patient?data?updated?07/09/2024?at?1:32?PM Signed?By:?Jame,?Favian,???on?07/09/2024?1:45:31 PM END OF DOCUMENT
--- OUTSIDE RECORDS SUMMARY | 2024-07-28 18:50 | XMS_ITS ---
Author Name Favian Kilgore Address [address] [place] [address] Phone [phone] Organization [facility] e, NA DOCUMENT DISCLAIMER Multiple document versions may exist, please be sure you review the latest version. The information in the [facility] Progress Note Document represents a providers documented clinical note containing certain health and medical information. It may not contain the complete medical history for the patient and should be independently verified. The represented time in the document is Eastern Time PROVIDER ROUNDING NOTE PD Patient:?Ashleigh?Loco,?1945,?78y,?F Dialysis?Location:?[facility] Attending?Product Introduction Manager:?Favian?Jame Service?Date:?05/22/2024 Service?Provider:?Favian?Jame,? I?met?face?to?face?with?the?patient?today. 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 in?good?spirits.? Medications?and?labs?reviewed. HOME?MEDICATIONS Comments:?Patient?discharged?from?hospital?with?diplopia.??F elt?to?be?small?vessel?disease?to?6th?nerve,?small&#160 ;chance?it?was?from?a?fall.? Home?Medications:? ??aspirin?81?mg,?by?mouth,?Take?1?tablet?once a?day ??amlodipine?10?mg,?by?mouth,?Take?1?tablet?once a?day ??ezetimibe?10?mg,?by?mouth,?Take?1?tablet?once a?day ??Kita-Cayden?(b?complex-vitamin?c-folic?acid)?0.8?mg ??sodium?bicarbonate?650?mg,?by?mouth,?Take?1?tablet?twice?a?day ??Creon?(ggpzjh-kjubajlr-vzewncn)?6,000-19,000-30,000?unit,?by?mo uth,?Take?1?capsule?three?times?a?day?with?meals ??gabapentin?100?mg,?by?mouth,?Take?1-2?capsule?at ?bedtime?as?needed?for?pain?Take?PRN?only?to?reduce?balance?issues ??Culturelle?(lactobacillus?rhamnosus?gg)?10?billion?cell,&# 160;by?mouth,?Take?1?capsule?once?a?day ??Protonix?(pantoprazole)?40?mg,?by?mouth,?Take?1?tablet?once?a?day ??Lomotil?(diphenoxylate-atropine)?2.5-0.025?mg,?Take?1?-&#1 60;2?tablets?by?mouth?QID ??Glucosamine?Chondroitin?MaxStr?(raegjjcxoei-xdyknhwsv-uvo?c-mn)&#160 ;500-400?mg,?by?mouth,?1?capsule?once?a?day ??melatonin?5?mg,?by?mouth,?Take?3?capsule?every night ??Jus's?leg?cramp?pills?(OTC)?2?tablet,?by?mouth,?2?tablet?three?times?a?day ??clonidine?HCl?(clonidine?hcl)?0.2?mg,?by?mouth,? Take?1?tablet?three?times?a?day?as?directed ??hydralazine?25?mg,?by?mouth,?Take?1?tablet?every ?six?hours?as?needed?SBP?>165?DBP?>100 ??tizanidine?2?mg,?by?mouth,?Take?1?tablet?every&# 160;eight?hours?as?needed?for?muscle?spasm ??alprazolam?0.5?mg,?by?mouth,?Take?1/2?tablet?every?night?as?needed ??promethazine?25?mg,?by?mouth,?Take?1?tablet?twice?a?day?as?needed?for?nausea Allergies:? ??codeine,?lisinopril,?Zofran LAST?HOSPITALIZATION Discharge?Diagnosis:?H53.2?Diplopia N30.00?Acute?cystitis?without?hematuria Admission?Date?05/14/24 Discharge?Date?05/19/24 VITALS?ASSESSMENT Vitals?measured?in-clinic. BP?Sit ??05/22/2024:?168/69 ??04/16/2024:?173/78 ??03/12/2024:?171/86 Weight?(kg) ??04/16/2024:?58 ??03/12/2024:?57.7 Temp ??05/22/2024:?98.3 Respirations ??05/22/2024:?16 Pulse ??05/22/2024:?86 Height ??11/26/2023:?5'?3'' TREATMENT?ASSESSMENT Blood?pressure?controlled.?No?changes?indicated. FLUID?ASSESSMENT Fluid?status?acceptable.?Weight?gain?acceptable.?No?changes?indicated. DIALYSIS?PRESCRIPTION ??CCPD?7x?Week?Start?date:?05/05/24 ??Cycles:?4 ??Cycler?Fill:?1999 ??Avg?Dwell:?1:40 ??Total?Cycler:?540 ??Last?Fill:?1999 ??Day?Exch:?0 ??Day?Fill:? ??EDW:?60 ??Rx?updated?on:?05/05/2024 ADEQUACY?ASSESSMENT Adequacy?target?met.?Prescription?compliance?acceptable.?No?changes?indicated.? PD?Kt/V,?Total ??04/16/2024:?2.57 ??02/13/2024:?2.4 ??11/26/2023:?2.53 ACCESS?ASSESSMENT ??Access?Type:?PDCatheter ??Access?SubType:?Double?Cuff?Coiled ??Access?Status:?Active?(In?Use)?-?02/20/2018 ??Access?Location:?Left?Lower?Quadrant ??Placed:?10/04/2017 Exit?site?looks?clean.?Tunnel?tract?without?sign?of?infection.?Effluent?clear. ANEMIA?ASSESSMENT HGB?at?goal.?Iron?parameters?acceptable.?OZZY?dose?adequate.& #160;No?changes?indicated.? HGB,?TSAT ??05/22/2024:?10.8,?56.0 ??04/16/2024:?11.6,?38.0 ??03/12/2024:?11.8,?- ?? Ferritin ??04/16/2024:?1296.0 ??01/23/2024:?2448.0 Active?Orders:?Iron?Sucrose?(Venofer)?200?mg?PRN. BMM?ASSESSMENT PTH?controlled.?Calcium?controlled.?Phosphorus?controlled.?No?loren nges?indicated.? PTH,?Intact ??04/16/2024:?330.0 ??01/23/2024:?194.0 ?? Calcium,?Phosphorus ??05/22/2024:?9.4,?4.1 ??04/16/2024:?9.0,?4.5 ??02/13/2024:?8.9,?4.3 NUTRITION?ASSESSMENT Comments:?hx?of?pancreatitis,??stable.? Potassium?controlled.?Albumin?below?goal.?No?changes?indicated. 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 DIAGNOSIS Chief?Complaint:?N18.6?End?stage?renal?disease Patient?data?updated?05/28/2024?at?2:04?PM Signed?By:?Jame,?Favian,???on?05/28/2024?2:08:48 PM END OF DOCUMENT
--- OUTSIDE RECORDS SUMMARY | 2024-07-28 18:50 | XMS_ITS | Continuity of Care Document ---
Author Name Unknown Organization [facility] Address [address] [id number] [address] Phone Care Team Providers Care Subject Scientific Research Name Role Phone Pfannenstiel DDS, Rendi Unavailable Unavaila ble Allergies, Adverse Reactions, Alerts Substance Reaction Status Criticality No Known Allergies Active No Inform ation Medications Medication Instructions Dosage Effective Dates (start - stop) Status Comments hydroxychloroquine 200 mg tablet take 1 tablet by oral route every day 200 MG - Active HALEY-Forte 1 mg capsule take 1 capsule by oral route every day 1.00 capsule - Active Procedures Procedure Date Intraoral ??? Periapical First Film Intraoral ??? Periapical Each Additional Film Intraoral ??? Periapical Each Additional Film Intraoral ??? Periapical Each Additional Film Panoramic Film Comprehensive Oral Evaluation ??? New Or Established Alveoloplasty Not In Conjunction With Ex tractions COMP EXAM & XRAYS Slide 2 EDR Approval Note Advance Directives Directive Yes / No Effective Date File Name No Information Encounters Encounter Description Practice Location Reason(s) For Visit Diagnoses Date Provider Providers Copied on Encounter [facility] [id number] [place] [id number], [place] tel:[phone] [facility] Encounter for dental exam and cleaning w/o abnormal findings [address] [place], [address], [place]. tel:[phone] Referring Provider: Trevor Hebert, [address] [place], [address]. tel:[phone] Family History Family Member Type Diagnosis Age At Onset No Information Payers Payer name Insurance type Covered libertarian ID Authoriza ajay(s) No Information Social History Type Description Quantity Date Captured Comments Alcohol Use Details No Caffeine Use Details Unknown Tobacco Use Status Ex-cigarette smoker 017 Smoking Status Former smoker Smoking Tobacco Use Details Cigarette: Age Stopped: 1999, Years Used 23 Cigarette: No Details Available Sex Female Sexual Orientation Heterosexual Gender Identity Female Vital Signs Date / Time: Height Weight BMI Pulse Rate Blood Pressure Temperature Respiratory Rate Body Surface Area Head Circumference Head Circ. Percentile Wt./Abner. Percentile BMI percentile Pulse Ox Inhaled Ox 1:48 PM 181/80 mm[Hg] Chief Complaint And Reason For Visit No Information Reason For Referral Reason For Referral No Information History Of Present Illness Encounter Date Complaint History Of Prese nt Illness No Information Functional Status Date Functional Assessmen t No Information Instructions Date Instruction Additional Infor mation No Information Assessments Type Assessment Date No Information Patient Care Teams Name Effective Dates (start - stop) Status Members No Information
--- OUTSIDE RECORDS SUMMARY | 2024-07-28 18:50 | XMS_ITS ---
Author Name Favian Kilgore Address [address] [place], [place] [address] Phone [phone] Organization [facility], NA DOCUMENT DISCLAIMER Multiple document versions may exist, please be sure you review the latest version. The information in the [facility] Progress Note Document represents a providers documented clinical note containing certain health and medical information. It may not contain the complete medical history for the patient and should be independently verified. The represented time in the document is Eastern Time PROVIDER ROUNDING NOTE PD Patient:?Ashleigh?Loco,?1945,?78y,?F Dialysis?Location:?[facility] [place] Attending?Cutting Table Operator First:?Favian?Jame Service?Date:?05/05/2024 Service?Provider:?Favian?Jame,? I?met?face?to?face?with?the?patient?today. OVERVIEW The?patient?presented?with?ESRD Primary?cause?of?renal?failure:?Other?secondary?hypertension Comments:?LE?swelling?is?better.?? Medications?and?labs?reviewed. HOME?MEDICATIONS Home?Medications:? ??Creon?(pxdqjg-tczvudbe-rktquyi)?6,000-19,000-30,000?unit,?by?mo uth,?Take?1?capsule?three?times?a?day?with?meals ??gabapentin?100?mg,?by?mouth,?Take?1-2?capsule?at ?bedtime?as?needed?for?pain?Take?PRN?only?to?reduce?balance?issues ??Culturelle?(lactobacillus?rhamnosus?gg)?10?billion?cell,&# 160;by?mouth,?Take?1?capsule?once?a?day ??amlodipine?5?mg,?by?mouth,?Take?1?tablet?once a?day ??Protonix?(pantoprazole)?40?mg,?by?mouth,?Take?1?tablet?once?a?day ??Lomotil?(diphenoxylate-atropine)?2.5-0.025?mg,?Take?1?-&#1 60;2?tablets?by?mouth?QID ??Glucosamine?Chondroitin?MaxStr?(smxewqbfwyf-cbpxideta-auk?c-mn)&#160 ;500-400?mg,?by?mouth,?1?capsule?once?a?day ??melatonin?5?mg,?by?mouth,?Take?3?capsule?every night ??Jus's?leg?cramp?pills?(OTC)?2?tablet,?by?mouth,?2?tablet?three?times?a?day ??clonidine?HCl?(clonidine?hcl)?0.2?mg,?by?mouth,? Take?1?tablet?three?times?a?day?as?directed ??alprazolam?0.5?mg,?by?mouth,?Take?1/2?tablet?every?night?as?needed ??promethazine?25?mg,?by?mouth,?Take?1?tablet?twice?a?day?as?needed?for?nausea Allergies:? ??codeine,?lisinopril,?Zofran LAST?HOSPITALIZATION Discharge?Diagnosis:?K65.9?Peritonitis,?unspecified Admission?Date?12/29/23 Discharge?Date?01/01/24 VITALS?ASSESSMENT Vitals?measured?in-clinic. BP?Sit ??04/16/2024:?173/78 ??03/12/2024:?171/86 ??02/13/2024:?172/70 Weight?(kg) ??04/16/2024:?58 ??03/12/2024:?57.7 ??02/13/2024:?57.2 Temp ??04/16/2024:?96.6 Respirations ??04/16/2024:?16 Pulse ??04/16/2024:?56 Height ??11/26/2023:?5'?3'' TREATMENT?ASSESSMENT Blood?pressure?controlled.?No?changes?indicated. FLUID?ASSESSMENT Fluid?status?acceptable.?Weight?gain?acceptable.?No?changes?indicated. DIALYSIS?PRESCRIPTION ??CCPD?7x?Week?Start?date:?04/09/24 ??Cycles:?4 ??Cycler?Fill:?1999 ??Avg?Dwell:?1:40 ??Total?Cycler:?540 ??Last?Fill:?1999 ??Day?Exch:?0 ??Day?Fill:? ??EDW:?57 ??Rx?updated?on:?04/09/2024 ADEQUACY?ASSESSMENT Adequacy?target?met.?Prescription?compliance?acceptable.?No?changes?indicated.? PD?Kt/V,?Total ??04/16/2024:?2.57 ??02/13/2024:?2.4 ??11/26/2023:?2.53 ACCESS?ASSESSMENT ??Access?Type:?PDCatheter ??Access?SubType:?Double?Cuff?Coiled ??Access?Status:?Active?(In?Use)?-?02/20/2018 ??Access?Location:?Left?Lower?Quadrant ??Placed:?10/04/2017 Access?perfect.?Exit?site?looks?clean.?Tunnel?tract?without& #160;sign?of?infection. ANEMIA?ASSESSMENT HGB?at?goal.?Iron?parameters?acceptable.?OZZY?dose?adequate.& #160;No?changes?indicated.? HGB,?TSAT ??04/16/2024:?11.6,?38.0 ??03/12/2024:?11.8,?- ??02/13/2024:?9.9,?50.0 ?? Ferritin ??04/16/2024:?1296.0 ??01/23/2024:?2448.0 ??10/19/2023:?1470.0 Mircera,?Sub?Q?(mcg) ??02/20/2024:?50 BMM?ASSESSMENT PTH?controlled.?Calcium?controlled.?Phosphorus?controlled.?BMM?me ds?adherence?acceptable.?No?changes?indicated.? PTH,?Intact ??04/16/2024:?330.0 ??01/23/2024:?194.0 ??10/19/2023:?165.0 ?? Calcium,?Phosphorus ??04/16/2024:?9.0,?4.5 ??02/13/2024:?8.9,?4.3 ??01/23/2024:?9.5,?4.1 NUTRITION?ASSESSMENT Comments:?hx?of?pancreatitis,??stable.? Potassium?controlled.?Albumin?below?goal.?Referred?to?dietitian. Potassium,?Albumin ??04/16/2024:?3.5,?3.3 ??03/12/2024:?-,?3.3 ??02/13/2024:?4.3,?3.0 PHYSICAL?EXAM Exam?Performed.?Vital?Signs?Reviewed.?Lungs?-?Clear.?CV&#160 ;-?Blood?pressure?noted.?CV?-?RRR. DIAGNOSIS Chief?Complaint:?N18.6?End?stage?renal?disease Patient?data?updated?05/05/2024?at?12:54?PM Signed?By:?Jame,?Favian,???on?05/05/2024?12:56:41 PM END OF DOCUMENT
--- OUTSIDE RECORDS SUMMARY | 2024-07-28 18:50 | XMS_ITS ---
Author Name Unknown Organization [facility] ALLERGIES AND ADVERSE REACTIONS No information ASSESSMENT No information CHIEF COMPLAINT No information Vital Signs Bpsitting Date Temperature Weight Height Spo2 Respiration Bmi Ti merecorded Pulse 130/78 023 12:00: 00 AM 97.1 156,0.00 5,3 null null 27.63 19:34 78 122/80 05/16/20 22 12:00: 00 AM null 190,0.00 null null null null 18:01 84 null 04/18/20 12:00: 00 AM 98 132,0.00 5,6 98 null 20.98 17:29 86 104/62 021 12:00: 00 AM 97.5 199,0.00 5,2 null null 36.99 09:24 74 124/62 022 12:00: 00 AM 97.7 150,0.00 null null null null 14:59 86 120/60 023 12:00: 00 AM 98.9 104,0.00 5,3 99 null 18.42 17:23 76 94/62 021 12:00: 00 AM 98.1 169,0.00 null null null null 18:07 60 132/84 2021 12:00: 00 AM 98.3 178,0.00 4,10 96 20 36.88 19:45 105 138/80 023 12:00: 00 AM 98.3 198,0.00 null null 16 null 20:18 78 138/80 2021 12:00: 00 AM 97.9 200,0.00 5,5 99 null 33.54 16:40 84 112/66 2021 12:00: 00 AM 98.2 163,8.00 5,7 null 16 25.6 18:25 56 171/85 024 12:00: 00 AM 97.2 114,16.0 0 null 97 19 null 09:27 55 OBJECTIVE DATA No information PHYSICAL EXAMINATION No information TREATMENT PLAN No information PROBLEMS No information RESULTS No information REVIEW OF SYSTEMS No information SUBJECTIVE DATA No information MEDICATIONS No information
--- OUTSIDE RECORDS SUMMARY | 2024-07-28 18:50 | XMS_ITS ---
Author Name Favian Kilgore Address [address] [place], [place] [address] Phone [phone] Organization [facility] e, NA DOCUMENT DISCLAIMER Multiple document versions may exist, please be sure you review the latest version. The information in the [facility] Progress Note Document represents a providers documented clinical note containing certain health and medical information. It may not contain the complete medical history for the patient and should be independently verified. The represented time in the document is Eastern Time PROVIDER ROUNDING NOTE PD Patient:?Ashleigh?Loco,?1945,?78y,?F Dialysis?Location:?[place] Attending?Certified Orthotic Fitter:?Favian?Jame Service?Date:?02/20/2024 Service?Provider:?Favian?Jame,? I?met?face?to?face?with?the?patient?today. OVERVIEW The?patient?presented?with?ESRD Primary?cause?of?renal?failure:?Other?secondary?hypertension Comments:?doing?better?at?home.?no?new?events Medications?and?labs?reviewed. HOME?MEDICATIONS Home?Medications:? ??Creon?(hzuelp-tvcwgbbk-iqpkzue)?6,000-19,000-30,000?unit,?by?mo uth,?Take?1?capsule?three?times?a?day?with?meals ??gabapentin?100?mg,?by?mouth,?Take?1-2?capsule?at ?bedtime?as?needed?for?pain?Take?PRN?only?to?reduce?balance?issues ??Culturelle?(lactobacillus?rhamnosus?gg)?10?billion?cell,&# 160;by?mouth,?Take?1?capsule?once?a?day ??amlodipine?5?mg,?by?mouth,?Take?1?tablet?once a?day?hold?5/2 ??Protonix?(pantoprazole)?40?mg,?by?mouth,?Take?1?tablet?once?a?day ??Lomotil?(diphenoxylate-atropine)?2.5-0.025?mg,?Take?1?-&#1 60;2?tablets?by?mouth?QID ??Glucosamine?Chondroitin?MaxStr?(qcjvkjxuxeb-ybbrwvabw-ypo?c-mn)&#160 ;500-400?mg,?by?mouth,?1?capsule?once?a?day ??melatonin?5?mg,?by?mouth,?Take?3?capsule?every night ??Jus's?leg?cramp?pills?(OTC)?2?tablet,?by?mouth,?2?tablet?three?times?a?day ??clonidine?HCl?(clonidine?hcl)?0.2?mg,?by?mouth,? Take?1?tablet?three?times?a?day?as?directed ??alprazolam?0.5?mg,?by?mouth,?Take?1/2?tablet?every?night?as?needed ??promethazine?25?mg,?by?mouth,?Take?1?tablet?twice?a?day?as?needed?for?nausea Allergies:? ??codeine,?lisinopril,?Zofran LAST?HOSPITALIZATION Discharge?Diagnosis:?K65.9?Peritonitis,?unspecified Admission?Date?12/29/23 Discharge?Date?01/01/24 VITALS?ASSESSMENT Vitals?measured?in-clinic. BP?Sit ??02/13/2024:?172/70 ??01/23/2024:?134/68 ??12/18/2023:?130/62 Weight?(kg) ??02/13/2024:?57.2 ??01/23/2024:?52.5 ??12/18/2023:?56.2 Temp ??02/13/2024:?97.8 Respirations ??02/13/2024:?18 Pulse ??02/13/2024:?56 Height ??11/26/2023:?5'?3'' TREATMENT?ASSESSMENT Blood?pressure?controlled.?No?changes?indicated. FLUID?ASSESSMENT Fluid?status?acceptable.?Weight?gain?acceptable.?No?changes?indicated. DIALYSIS?PRESCRIPTION ??CCPD?7x?Week?Start?date:?09/18/23 ??Cycles:?4 ??Cycler?Fill:?1999 ??Avg?Dwell:?1:40 ??Total?Cycler:?540 ??Last?Fill:?1999 ??Day?Exch:?0 ??Day?Fill:? ??EDW:?55 ??Rx?updated?on:?09/18/2023 ADEQUACY?ASSESSMENT Adequacy?target?met.?Prescription?compliance?acceptable.?No?changes?indicated.? PD?Kt/V,?Total ??02/13/2024:?2.4 ??11/26/2023:?2.53 ??08/21/2023:?2.43 ACCESS?ASSESSMENT ??Access?Type:?PDCatheter ??Access?SubType:?Double?Cuff?Coiled ??Access?Status:?Active?(In?Use)?-?02/20/2018 ??Access?Location:?Left?Lower?Quadrant ??Placed:?10/04/2017 Access?perfect.?Exit?site?looks?clean.?Tunnel?tract?without& #160;sign?of?infection.?Effluent?clear. ANEMIA?ASSESSMENT HGB?below?goal.?Medications?adjusted.?Treatment?protocol?ordered.? HGB,?TSAT ??02/13/2024:?9.9,?50.0 ??01/23/2024:?10.0,?38.0 ??12/18/2023:?12.0,?50.0 ?? Ferritin ??01/23/2024:?2448.0 ??10/19/2023:?1470.0 Active?Orders:?Iron?Sucrose?(Venofer)?200?mg?PRN. BMM?ASSESSMENT PTH?controlled.?Calcium?controlled.?Phosphorus?controlled.?BMM?me ds?adherence?acceptable.?No?changes?indicated.? PTH,?Intact ??01/23/2024:?194.0 ??10/19/2023:?165.0 ?? Calcium,?Phosphorus ??02/13/2024:?8.9,?4.3 ??01/23/2024:?9.5,?4.1 ??12/18/2023:?9.2,?4.0 NUTRITION?ASSESSMENT Comments:?hx?of?pancreatitis,??GI?illness.??Appetite?is?better.? Potassium?controlled.?Albumin?below?goal.?Referred?to?dietitian. Potassium,?Albumin ??02/13/2024:?4.3,?3.0 ??01/23/2024:?5.7,?2.8 ??12/18/2023:?4.2,?3.5 PHYSICAL?EXAM Exam?Performed.?Vital?Signs?Reviewed.?Lungs?-?Clear.?CV&#160 ;-?Blood?pressure?noted.?CV?-?RRR. DIAGNOSIS Chief?Complaint:?N18.6?End?stage?renal?disease Patient?data?updated?02/20/2024?at?12:54?PM Signed?By:?Jame,?Favian,???on?02/20/2024?1:29:28 PM END OF DOCUMENT
--- OUTSIDE RECORDS SUMMARY | 2024-07-28 18:50 | XMS_ITS ---
Author Name Unknown Organization Unknown ALLERGIES AND ADVERSE REACTIONS No information ASSESSMENT No information CHIEF COMPLAINT No information MEDICATIONS No information OBJECTIVE DATA No information PHYSICAL EXAMINATION No information TREATMENT PLAN Planned Care Start Date Provider Encounter for Check-up [id number] [facility] PROBLEMS No information RESULTS No information REVIEW OF SYSTEMS No information SUBJECTIVE DATA No information VITAL SIGNS No information
[2024-07-28 19:41] LABS: Estmated Average Glucose 85; Hemoglobin A1C 4.6 % (4.0-6.0)
[2024-07-28 20:17] LABS: Hematocrit 31.4 % (36-47)
[2024-07-28] MEDS: heparin 5,000 unit/mL INJ 1 mL 5000 UNIT SUBCUT (20:35)
--- NOTE | 2024-07-28 21:03 | PC.NURSE ---
Dr. Nayak from telenephrology called to consult with patient. This nurse to bedside with Dr. Nayak via ipad to see patient. Plan of care discussed with patient and all questions answered at this time.
--- NOTE | 2024-07-28 21:12 | P.CONIM_ITS ---
Providers/Reason For Consult 2 Consulting Physician/Specialty*: kommana/Nephrology Reason for Consult*: ESRD- PD Attending Physician: Luke Archibald MD Primary Care Provider: Asif Grijalva History of Present Illness History of Present Illness Ashleigh Adan is a 78 year old female patient is a 78-year-old female with past medical history of prior colon cancer status post colectomy end-stage renal disease on peritoneal dialysis history of amyloidosis anxiety hepatitis diabetes history of lupus presents to the emergency department due to nausea vomiting abdominal pain and also bloody stools. Patient reports that her dialysis effluent has been clear . No fevers and chills. Lab data is significant for hemoglobin of 9.6 WBC count of 16,000 potassium of 2.8 creatinine of 5.1. Patient does peritoneal dialysis at home via cycler Review of Systems 2 Narrative: Negative Medications/Allergies Home Medications Medication Instructions Recorded Confirmed Last Taken Type acetaminophen 325 mg tablet 650 mg PO QID PRN Pain 07/28/24 07/28/24 07/24/24 History alprazolam 0.5 mg tablet 0.5 mg PO BEDTIME PRN Anxiety 07/28/24 07/28/24 07/24/24 History amlodipine 10 mg tablet 10 mg PO DAILY 07/28/24 07/28/24 07/28/24 History aspirin 81 mg chewable tablet 81 mg PO DAILY 07/28/24 07/28/24 07/28/24 History bisacodyl 10 mg rectal suppository See Rx Instructions .Route 07/28/24 07/28/24 Unknown History (Dulcolax (bisacodyl)) .COMPLEX PRN Constipation diphenoxylate-atropine 2.5 1 tab PO QID PRN Diarrhea/loose 07/28/24 07/28/24 07/23/24 History mg-0.025 mg tablet stools gentamicin 0.1 % topical cream See Rx Instructions .Route .COMPLEX 07/28/24 07/28/24 07/27/24 History heparin (porcine) 1,000 unit/mL See Rx Instructions .Route .COMPLEX 07/28/24 07/28/24 07/20/24 History injection solution hydralazine 25 mg tablet 25 mg PO Q6H PRN bp 07/28/24 07/28/24 Unknown History hydroxyzine HCl 25 mg tablet 25 mg PO BEDTIME 07/28/24 07/28/24 07/27/24 History plvupd-tyjzrihp-bgqwegj 1 cap PO TID 07/28/24 07/28/24 07/28/24 History 6,000-19,000-30,000 unit capsule,delayed rel (Creon) menthol 0.44 %-zinc oxide 20.6 % See Rx Instructions .Route .COMPLEX 07/28/24 07/28/24 07/27/24 History topical ointment (Calmoseptine) pantoprazole 40 mg tablet,delayed 40 mg PO QAM 07/28/24 07/28/24 07/28/24 History release potassium chloride 20 mEq 20 meq PO DAILY 07/28/24 07/28/24 07/28/24 History tablet,extended release(part/cryst) promethazine 25 mg tablet 25 mg PO BID PRN nausea/emesis 07/28/24 07/28/24 07/25/24 History sertraline 25 mg tablet 25 mg PO BEDTIME 07/28/24 07/28/24 07/27/24 History sodium bicarbonate 650 mg tablet 1,300 mg PO DAILY 07/28/24 07/28/24 07/28/24 History tizanidine 2 mg tablet 2 mg PO Q8H PRN Spasms 07/28/24 07/28/24 07/24/24 History vitamin B complex-vitamin C-folic 1 tab PO DAILY 07/28/24 07/28/24 07/28/24 History acid 0.8 mg tablet (Nephro-Cayden) Allergies Allergy/AdvReac Type Severity Reaction Status Date / Time cyclobenzaprine Allergy Unknown Verified 07/28/24 13:55 hydrocodone Allergy Unknown Verified 07/28/24 13:55 lisinopril Allergy Unknown Verified 07/28/24 13:55 ondansetron Allergy Unknown Verified 07/28/24 13:55 Jhsegvs-QPC-IuP Reductase Allergy Unknown Verified 07/28/24 13:55 Inhibitor codeine sulfate Allergy Unknown Uncoded 07/28/24 13:55 Current Medications Generic Name Dose Route Start Last Admin Trade Name Freq PRN Reason Stop Dose Admin Lipase/Protease/Amylase 1 each 07/28/24 21:00 07/28/24 20:35 Xqbxpk-Douhccov-Ihstdst Capsule PO Not Given TID VU Heparin Sodium (Porcine) 5,000 unit 07/28/24 21:00 07/28/24 20:35 Heparin 5,000 Unit/Ml Inj 1 Ml SUBCUT 5,000 unit Q12H VU Administration Hydroxyzine Pamoate 25 mg 07/28/24 21:00 07/28/24 20:35 Hydroxyzine 25 Mg Capsule PO Not Given BEDTIME VU Sodium Chloride 1,000 mls @ 75 mls/hr 07/28/24 16:45 07/28/24 17:09 Sodium Chloride 0.9% IV 75 mls/hr .[id number] VU Administration Insulin Human Lispro 0 unit 07/28/24 18:00 07/28/24 17:06 Insulin Lispro 100 Unit/1 Ml SUBCUT Not Given TIDWM VU Protocol Sertraline HCl 25 mg 07/28/24 21:00 07/28/24 20:35 Sertraline 50 Mg Tablet PO Not Given BEDTIME VU Sucralfate 1 gm 07/28/24 16:45 07/28/24 17:08 Sucralfate 1 Gm/10 Ml Oral Liq Udc PO 1 gm Q6H VU Administration PFSH Acute 2 PFSH: Medical History (Updated 07/28/24 @ 16:41 by Luke Archibald MD) History of colon cancer Type 2 diabetes mellitus Surgical History (Updated 07/28/24 @ 16:39 by Luke Archibald MD) History of colectomy Social History (Updated 07/28/24 @ 16:39 by Luke Archibald MD) Smoking and tobacco/nicotine status: never used tobacco/nicotine Alcohol intake: never Substance/Drug Use: never Vitals/I&O/Wt Last Vital Signs Temp 98.5 F 07/28/24 17:00 Pulse 104 H 07/28/24 17:00 Resp 19 H 07/28/24 17:00 BP 186/84 07/28/24 17:00 Pulse Ox 94 07/28/24 17:00 O2 Del Method Room Air 07/28/24 17:00 Weight last 48 hrs Weight 49.895 kg Physical Exam 2 Narrative: Patient is awake alert no distress HEENT S1-S2 regular rate and rhythm per report Lungs clear per report Abdomen soft , nontender, PD catheter in place No pedal edema Data 07/28/24 19:55 07/28/24 14:11 Micro: Microbiology 07/28/24 14:11 Blood Culture - Preliminary Blood SPECIMEN COLLECTED 07/28/24 13:55 Blood Culture - Preliminary Blood SPECIMEN COLLECTED A&P Assessment and plan (1) End stage renal disease on dialysis: 1. End-stage renal disease: On peritoneal dialysis, patient uses cycler with 4 exchanges and 6 L fluid x 8 hours at night -Will do manual exchange here with 1.5% dextrose solution dwell for 6 hours 2. Nausea vomiting and dark tarry stool: Question GI bleed, does not have clinical signs of peritonitis, await PD fluid cultures, CT scan unremarkable 3. Hypokalemia: Will replace potassium 4. Anemia: Will order a dose of OZZY today 5. History of diabetes 6. Hypertension: Resume home meds Patient evaluated using audiovisual cart. Time spent 40 minutes. Consult Attestations 2 Medical Necessity Statement: Per medicine team Coding Level of Care Code Acute Code for Chg Fwd Diagnoses End stage renal disease on dialysis N18.6; Z99.2
[2024-07-28] MEDS: piperacillin-tazobactam 3.375 GM in sodium chloride 0.9% (plus) 50 ML IV (21:13)
[2024-07-28 21:26] LABS: Glucose Point of Care 93 mg/dL (70-110)
[2024-07-28] MEDS: Dianeal low Ca w/1.5% dex 2,000 mL Bag 2000 ML INTRAPERIT (23:16)
--- NOTE | 2024-07-28 23:17 | PC.NURSE ---
Peritoneal Dialysis: PD started at 2315. 2,000 mL instilled. Dwell time 6 hours per order.
[2024-07-29] VITALS (10 sets, daily range): BP systolic 156–191; BP diastolic 64–82; PULSE 61–99; RESP 16–20; TEMP 36.3–37.2; O2SAT 92–98
[2024-07-29] MEDS: hyDRALAzine 20 mg/mL INJ 1 mL 10 MG IVP (01:40)
[2024-07-29 01:44] LABS: Basophils % 0.3 %; Eosinophils % 0.1 %; Hematocrit 30.4 % (36-47); Lymphocytes # 1.7 10^3/uL (0.8-4.8); Lymphocytes % 12.5 %; Mean Corpuscular HGB Conc 32.9 g/dL (30-55); Mean Corpuscular Hemoglobin 32.8 pg (27-33); Mean Corpuscular Volume 99.7 fl (85-98); Mean Platelet Volume 9.6 fL (7.4-10.4); Monocytes % 7.6 %; Neutrophils # 10.47 10^3/uL (1.8-7.7); Neutrophils % 78.6 %; Nucleated Red Blood Cells # 0.1 /100WBC; Platelet Count 523 10^3/cmm (157-399); Red Blood Count 3.05 10^6/uL (3.85-5.65); Red Cell Distribution Width 15.5 % (12.1-15.1); White Blood Count 13.34 10^3/uL (3.29-11.43)
[2024-07-29 02:02] LABS: Alanine Aminotransferase 20 U/L (0-33); Albumin Level 2.9 g/dL (3.5-5.2); Alkaline Phosphatase 134 U/L (35-105); Anion Gap 17.1 (5-19); Aspartate Amino Transferase 26 U/L (0-32); Blood Urea Nitrogen 45 mg/dL (8-23); Carbon Dioxide 24 mmol/L (22-29); Chloride 99 mmol/L (98-107); Globulin 4.2 g/dL (1.3-4.6); Glucose 133 mg/dL (65-115); Magnesium 1.4 mg/dL (1.7-2.3); Osmolality Calculated 297 mOsm/kg (285-295); Phosphorus 3.4 mg/dL (2.5-4.5); Potassium 3.1 mmol/L (3.5-5.1); Sodium 137 mmol/L (136-145); Total Bilirubin 0.5 mg/dL (0.15-1.2); Total Protein 7.1 g/dL (6.6-8.7)
[2024-07-29] MEDS: sucralfate 1 gm/10 mL Oral Liq UDC PO ×4 (03:53→22:17)
[2024-07-29] MEDS: pantoprazole 40 mg SDV IVP ×2 (03:53→15:50)
[2024-07-29 04:30] LABS: Bilirubin Urine Negative (Negative); Blood Urine Negative (Negative); Glucose Urine UA Negative (Normal); Ketones Urine Negative (Negative); Leukocyte Esterase Urine Negative (Negative); Nitrate Urine Negative (Negative); Protein Urine 3+ (Negative); Specific Gravity, Urine 1.028 (1.005-1.030); Urine Appearance Clear (CLEAR); Urine Color Yellow (Yellow)
[2024-07-29 04:35] LABS: Add Urine Microscopic? YES
[2024-07-29 04:52] LABS: RBC Urine 15-25 /hpf (0-2); UA Manual Slide Review YES
[2024-07-29 04:53] LABS: Add Urine Culture? No; Bacteria Urine 3+ /hpf; Mucus Urine 2+ /hpf; Squamous Epithelial Cell Urine 15-25 /hpf (0-5); WBC Urine 0-4 /hpf (0-5)
[2024-07-29] MEDS: sodium chloride 0.9% 1,000 ML 75 ML IV (05:18)
[2024-07-29 06:35] LABS: Glucose Point of Care 100 mg/dL (70-110)
[2024-07-29 07:39] LABS: Body Fluid Polynuclear #Cells 0.002; Body Fluid WBC 17 /uL; Monocytes # Body Fluid 0.015; RBC, Body Fluid 0 10^3/uL
[2024-07-29 07:41] LABS: Apprearance, Body Fluid CLEAR; Color, Body Fluid COLORLESS; Cyto Order Verification No Order; PATH Referral YES
[2024-07-29 08:19] LABS: Albumin Body Fluid 0.3 g/dL; Cholesterol Body Fluid < 4 mg/dL (0-200); Fluid Alkaline Phos. < 5 IU/L; LDH Body Fluid 21 U/L; Total Protein Body Fluid 0.3 g/dL; Triglycerides Body Fluid 35 mg/dL (0-150); Uric Acid Body Fluid 7 mg/dL; pH Body Fluid 7.5
[2024-07-29 08:20] LABS: Fluid Laterality NT
[2024-07-29 08:31] LABS: Hematocrit 31.3 % (36-47)
--- NOTE | 2024-07-29 09:32 | PC.CHAP ---
Pastoral Care Encounter/Spiritual Assessment Type of Contact [] Declined rn pediatric icu visit [] Patient/Family/Request visit [] Outpatient visit [] Follow-up visit [] Physician referral [] Code/Alert [x] Routine visit [] Staff referral [] Actively dying [] Patient sleeping [] Family support [] [] Out of room [] Palliative care [] [] Receiving care in room [] Pre-surgical visit [] Trauma [] Long length of stay [] ICU visit [] Other: Relational/Emotional Strength [x] Patient feels connected with others/family/visitors/staff [] Distress [] Loneliness/isolation [] Abandonment Spirituality of Patient [x] Person of Rosa [] Attends Yarsanism of their Rosa [x] Believes in Prayer [] Reads Bible or Restorationist materials [] There are Spiritual issues to be addressed Retail Team Member Interventions [x] Prayer [x] Active listening [] Non-anxious presence [x] Spiritual/emotional support [] Crisis/trauma care [] Spiritual counseling [] Bereavement support [] Provided bereavement packet [] Provided Bible/devotional materials [] Provided toy/stuffed animal, coloring book to patient or family member [] Provided Communion [] Anointing/[place] [] Salvation [x] Completed spiritual assessment [] Other: Impact on Illness or Injury [] Angry [] Fearful [] Anxious [] Often cries [] Exhaustion [] Unable to work [] Unable to attend evangelical [] Unable to walk/stand [] Unable to read [] Unable to drive [] Unable to eat/drink [] Unable to sleep [] Unable to be with family [] Patient intubated [] Other: Summary Time spent with patient 5 min
[2024-07-29] MEDS: piperacillin-tazobactam 3.375 GM in sodium chloride 0.9% (plus) 50 ML IV ×2 (10:28→20:57)
[2024-07-29] MEDS: heparin 5,000 unit/mL INJ 1 mL 5000 UNIT SUBCUT ×2 (10:33→20:17)
[2024-07-29] MEDS: sodium bicarbonate 650 mg Tablet 1300 MG PO (10:39)
[2024-07-29] MEDS: hyDRALAzine 25 mg Tablet PO ×3 (10:39→20:17)
[2024-07-29] MEDS: lipase-protease-amylase Capsule 1 EACH PO ×3 (10:42→20:17)
[2024-07-29] MEDS: acetaminophen 325 mg Tablet 650 MG PO (10:55)
[2024-07-29] MEDS: potassium chloride premix 100 ML 25 MEQ IV (11:55)
[2024-07-29 12:21] LABS: Glucose Point of Care 128 mg/dL (70-110)
--- NOTE | 2024-07-29 13:40 | P.PN_ITS ---
Subjective 2 Subjective: Patient was seen this morning, she is sitting up to the side of the chair, she tells me that she hurts all over, her abdominal pain is improving she has not had a bowel movement this morning, no fevers, no chills, no cough Vitals/I&O/Wt Last Vital Signs Temp 98.4 F 07/29/24 12:00 Pulse 97 07/29/24 12:00 Resp 17 07/29/24 12:00 BP 172/64 07/29/24 12:00 Pulse Ox 96 07/29/24 12:00 O2 Del Method Room Air 07/29/24 12:00 07/28/24 07/29/24 07/29/24 22:59 06:59 14:59 Intake Total 105 / 105 2961.25 / 3066.25 535 / 535 Output Total 2100 / 2100 50 / 50 Balance 105 / 105 861.25 / 966.25 485 / 485 Weight last 48 hrs Weight 58.196 kg Weight 49.895 kg Physical Exam 2 Const: COMMON NORMALS: no acute distress and patient oriented x3 Resp: COMMON NORMALS: normal respiratory effort, No retractions, No use of accessory muscles and clear to auscultation bilaterally AUSCULTATION: clear to auscultation bilaterally Cardio: COMMON NORMALS: regular rate, regular rhythm, S1 normal heart sound present and S2 normal heart sound present RATE: regular rate RHYTHM: r egular rhythm HEART SOUNDS: S1 normal heart sound present and S2 normal heart sound present GI: COMMON NORMALS: Normal to inspection, nondistended, normoactive bowel sounds present and non-tender Extremity: COMMON NORMALS: no clubbing, cyanosis or edema and no pedal edema Neuro: COMMON NORMALS: patient oriented x3 Psych: COMMON NORMALS: mental status grossly normal Data 07/29/24 07:52 07/29/24 01:36 Micro: Microbiology 07/29/24 05:45 Gram Stain - Final Peritoneal Fluid 07/28/24 14:11 Blood Culture - Preliminary Blood SPECIMEN COLLECTED 07/28/24 13:55 Blood Culture - Preliminary Blood SPECIMEN COLLECTED A&P Assessment and plan (1) GI bleed: (2) Abdominal pain: (3) Leukocytosis: (4) Acute anemia: Plan GI bleed -Complaints of black tarry stools, vomiting coffee-ground emesis -She is on aspirin -Hemoglobin improved to 10.2 Plan -Monitor closely -Monitor hemoglobin closely -Protonix -Carafate -Transfuse hemoglobin if less than 7 -Full code -SCDs for DVT prophylaxis Abdominal pain -Elevated leukocytosis, elevated lipase, elevated CRP Plan -CT scan abdomen pelvis with IV contrast CT/CT abdomen pelvis w con* [id number] IMPRESSION: 1. No acute findings. 2. Peritoneal dialysis with small perihepatic and perisplenic fluid collections. -Peritoneal cultures pending, possible peritonitis? -Continue IV Zosyn Acute anemia # Iron studies, ferritin, Hemoccult stool Type 2 diabetes mellitus, low-dose sliding scale History of PD dialysis, PD catheter in place, start PD tonight Attestations 2 Medical Necessity Statement*: Patient requires hospitalization for GI bleed, abdominal pain Diagnoses GI bleed K92.2 Abdominal pain R10.9 Leukocytosis D72.829 Acute anemia D64.9
[2024-07-29 14:36] LABS: Hematocrit 28.5 % (36-47)
[2024-07-29 17:13] LABS: Glucose Point of Care 108 mg/dL (70-110)
--- NOTE | 2024-07-29 17:14 | P.PN_ITS ---
Subjective 2 Subjective: no new c/o Medications: Reviewed: Yes Vitals/I&O/Wt Last Vital Signs Temp 99.0 F 07/29/24 16:00 Pulse 89 07/29/24 16:00 Resp 17 07/29/24 16:00 BP 180/81 07/29/24 16:00 Pulse Ox 96 07/29/24 16:00 O2 Del Method Room Air 07/29/24 16:00 07/29/24 07/29/24 07/29/24 06:59 14:59 22:59 Intake Total 2961.25 / 3066.25 585 / 585 100 / 685 Output Total 2100 / 2100 50 / 50 Balance 861.25 / 966.25 535 / 535 100 / 635 Weight last 48 hrs Weight 58.196 kg Weight 49.895 kg Physical Exam 2 Narrative: Patient is awake alert no distress HEENT S1-S2 regular rate and rhythm per report Lungs clear per report Abdomen soft , nontender, PD catheter in place No pedal edema Data 07/29/24 14:22 07/29/24 01:36 Micro: Microbiology 07/28/24 14:11 Blood Culture - Preliminary Blood NEGATIVE TO DATE 07/28/24 13:55 Blood Culture - Preliminary Blood NEGATIVE TO DATE 07/29/24 05:45 Gram Stain - Final Peritoneal Fluid A&P Assessment and plan (1) End stage renal disease on dialysis: 1. End-stage renal disease: On peritoneal dialysis, patient uses cycler with 4 exchanges and 6 L fluid x 8 hours at night -Will do manual exchange here with 1.5% dextrose solution dwell for 8 hours 2. Nausea vomiting and dark tarry stool: Question GI bleed, does not have clinical signs of peritonitis, await PD fluid cultures, CT scan unremarkable 3. Hypokalemia: Will replace potassium 4. Anemia: Will order a dose of OZZY today 5. History of diabetes 6. Hypertension: Resume home meds Patient evaluated using audiovisual cart. Time spent 40 minutes. Attestations 2 Medical Necessity Statement*: per medicine Coding Level of Care Code Acute Code for Chg Fwd Diagnoses End stage renal disease on dialysis N18.6; Z99.2
[2024-07-29 19:59] LABS: Glucose Point of Care 79 mg/dL (70-110)
[2024-07-29] MEDS: hyDROXYzine 25 mg Capsule PO (20:17)
[2024-07-29] MEDS: sertraline 50 mg Tablet 25 MG PO (20:17)
[2024-07-29] MEDS: Dianeal low Ca w/1.5% dex 2,000 mL Bag 2000 ML INTRAPERIT (21:54)
[2024-07-30] VITALS (8 sets, daily range): BP systolic 146–196; BP diastolic 64–92; PULSE 95–103; RESP 16–18; TEMP 36.2–37.3; O2SAT 95–98
[2024-07-30] MEDS: amlodipine 10 mg Tablet PO ×2 (04:25→08:22)
[2024-07-30] MEDS: sucralfate 1 gm/10 mL Oral Liq UDC PO ×4 (04:25→20:18)
[2024-07-30] MEDS: pantoprazole 40 mg SDV IVP ×2 (04:25→15:46)
[2024-07-30 04:31] LABS: Glucose Point of Care 105 mg/dL (70-110)
[2024-07-30 04:53] LABS: Basophils % 0.2 %; Eosinophils % 0.2 %; Hematocrit 28.9 % (36-47); Lymphocytes % 12.2 %; Mean Corpuscular HGB Conc 32.9 g/dL (30-55); Mean Corpuscular Hemoglobin 33.1 pg (27-33); Mean Corpuscular Volume 100.7 fl (85-98); Mean Platelet Volume 9.9 fL (7.4-10.4); Monocytes # 1.3 10^3/uL (0.2-0.9); Neutrophils # 12.66 10^3/uL (1.8-7.7); Neutrophils % 78.7 %; Nucleated Red Blood Cells # 0.1 /100WBC; Nucleated Red Blood Cells % 0.6 %; Platelet Count 556 10^3/cmm (157-399); Red Blood Count 2.87 10^6/uL (3.85-5.65); Red Cell Distribution Width 16.2 % (12.1-15.1)
[2024-07-30 05:10] LABS: Alanine Aminotransferase 17 U/L (0-33); Albumin Level 2.5 g/dL (3.5-5.2); Alkaline Phosphatase 125 U/L (35-105); Anion Gap 18.8 (5-19); Aspartate Amino Transferase 24 U/L (0-32); Blood Urea Nitrogen 46 mg/dL (8-23); Calcium 8.3 mg/dL (8.5-10.5); Carbon Dioxide 21 mmol/L (22-29); Chloride 100 mmol/L (98-107); Creatinine Clr Calc Pharmacy 7.8263; Glucose 105 mg/dL (65-115); Magnesium 1.5 mg/dL (1.7-2.3); Osmolality Calculated 294 mOsm/kg (285-295); Phosphorus 3.8 mg/dL (2.5-4.5); Potassium 3.8 mmol/L (3.5-5.1); Sodium 136 mmol/L (136-145); Total Bilirubin 0.4 mg/dL (0.15-1.2); Total Protein 6.5 g/dL (6.6-8.7)
[2024-07-30 06:13] LABS: Glucose Point of Care 106 mg/dL (70-110)
[2024-07-30] MEDS: sodium bicarbonate 650 mg Tablet 1300 MG PO (08:22)
[2024-07-30] MEDS: lipase-protease-amylase Capsule 1 EACH PO ×3 (08:22→20:18)
[2024-07-30] MEDS: acetaminophen 325 mg Tablet 650 MG PO (08:22)
[2024-07-30] MEDS: piperacillin-tazobactam 3.375 GM in sodium chloride 0.9% (plus) 50 ML IV ×2 (08:23→20:19)
[2024-07-30] MEDS: hyDRALAzine 25 mg Tablet PO ×3 (08:23→20:18)
[2024-07-30] MEDS: heparin 5,000 unit/mL INJ 1 mL 5000 UNIT SUBCUT ×2 (08:23→20:18)
[2024-07-30 08:47] LABS: Erythrocyte Sedimentation Rate 63 mm/hr (0-15)
[2024-07-30 10:56] LABS: Folate Level 19.6 ng/mL (4.8-37.3); Vitamin B12 716 pg/mL (232-1245)
--- NOTE | 2024-07-30 11:04 | P.PN_ITS ---
Subjective 2 Subjective: no new complaints Medications: Reviewed: Yes Vitals/I&O/Wt Last Vital Signs Temp 98.1 F 07/30/24 08:00 Pulse 95 07/30/24 08:00 Resp 16 07/30/24 08:00 BP 164/67 07/30/24 08:00 Pulse Ox 96 07/30/24 08:00 O2 Del Method Room Air 07/30/24 08:00 07/29/24 07/30/24 07/30/24 22:59 06:59 14:59 Intake Total 340 / 925 50 / 975 360 / 360 Balance 340 / 875 50 / 925 360 / 360 Weight last 48 hrs Weight 62.006 kg Weight 58.196 kg Weight 58.196 kg Weight 49.895 kg Physical Exam 2 Narrative: Patient is awake alert no distress HEENT S1-S2 regular rate and rhythm per report Lungs clear per report Abdomen soft , nontender, PD catheter in place No pedal edema Data 07/30/24 04:42 07/30/24 04:42 Micro: Microbiology 07/28/24 14:11 Blood Culture - Preliminary Blood NEGATIVE TO DATE 07/28/24 13:55 Blood Culture - Preliminary Blood NEGATIVE TO DATE 07/29/24 05:45 Gram Stain - Final Peritoneal Fluid A&P Assessment and plan (1) End stage renal disease on dialysis: 1. End-stage renal disease: On peritoneal dialysis, patient uses cycler with 4 exchanges and 6 L fluid x 8 hours at night -Will do manual exchange here with 1.5% dextrose solution dwell for 8 hours 2. Nausea vomiting and dark tarry stool: Question GI bleed, does not have clinical signs of peritonitis, await PD fluid cultures, CT scan unremarkable 3. Hypokalemia: Will replace potassium 4. Anemia: s/p OZZY 5. History of diabetes 6. Hypertension: Resume home meds Patient evaluated using audiovisual cart. Time spent 40 minutes. Attestations 2 Medical Necessity Statement*: PER MEDICINE Coding Level of Care Code Acute Code for Chg Fwd Diagnoses End stage renal disease on dialysis N18.6; Z99.2
[2024-07-30 11:30] LABS: Glucose Point of Care 125 mg/dL (70-110)
--- NOTE | 2024-07-30 11:42 | PC.SOCIAL ---
IMM Updated Updated pt's via phone, on IMM. No questions voiced. Provided pt a copy. Initialed, dated, & timed a copy & placed in chart.
--- NOTE | 2024-07-30 16:06 | P.PN_ITS ---
Subjective 2 Subjective: Patient was seen this morning, she is sitting up to the side of the bed, denies any fevers, no chills, no nausea, no vomiting she did have a bowel movement this morning we discussed her hemoglobin dropped to 9.5, discussed risk and benefits of EGD, she is agreeable to proceed, discussed her leukocytosis, etiology unclear at this time, will continue to monitor her cultures continue IV antibiotics Vitals/I&O/Wt Last Vital Signs Temp 99.1 F 07/30/24 16:00 Pulse 99 07/30/24 16:00 Resp 16 07/30/24 16:00 BP 146/64 07/30/24 16:00 Pulse Ox 96 07/30/24 16:00 O2 Del Method Room Air 07/30/24 16:00 07/30/24 07/30/24 07/30/24 06:59 14:59 22:59 Intake Total 50 / 975 650 / 650 Balance 50 / 925 650 / 650 Weight last 48 hrs Weight 62.006 kg Weight 58.196 kg Weight 58.196 kg Physical Exam 2 Const: COMMON NORMALS: no acute distress and patient oriented x3 Neck/C-Spine: COMMON NORMALS: no JVD Resp: COMMON NORMALS: normal respiratory effort, No retractions, No use of accessory muscles and clear to auscultation bilaterally AUSCULTATION: clear to auscultation bilaterally Cardio: COMMON NORMALS: no JVD, regular rate, regular rhythm, S1 normal heart sound present and S2 normal heart sound present RATE: regular rate RHYTHM: regular rhythm HEART SOUNDS: S1 normal heart sound present and S2 normal heart sound present GI: COMMON NORMALS: Normal to inspection, nondistended, normoactive bowel sounds present and non-tender Extremity: COMMON NORMALS: no calf tenderness and no pedal edema Neuro: COMMON NORMALS: patient oriented x3 Psych: COMMON NORMALS: mental status grossly normal Data 07/30/24 04:42 07/30/24 04:42 Micro: Microbiology 07/29/24 05:45 Gram Stain - Final Peritoneal Fluid Anaerobic Culture - Preliminary Body Fluid Culture - Preliminary 07/28/24 14:11 Blood Culture - Preliminary Blood NEGATIVE TO DATE 07/28/24 13:55 Blood Culture - Preliminary Blood NEGATIVE TO DATE A&P Assessment and plan (1) GI bleed: (2) Abdominal pain: (3) Leukocytosis: (4) Acute anemia: Plan GI bleed -Complaints of black tarry stools, vomiting coffee-ground emesis -She is on aspirin -Hemoglobin improved to 8-9.5 Plan -Monitor closely -Monitor hemoglobin closely -Protonix -Carafate -Transfuse hemoglobin if less than 7 ? General Surgery consulted for EGD tomorrow morning, n.p.o. midnight -Full code -SCDs for DVT prophylaxis Abdominal pain -Elevated leukocytosis, elevated lipase, elevated CRP Plan -CT scan abdomen pelvis with IV contrast CT/CT abdomen pelvis w con* [id number] IMPRESSION: 1. No acute findings. 2. Peritoneal dialysis with small perihepatic and perisplenic fluid collections. -Peritoneal cultures pending, possible peritonitis? -Continue IV Zosyn Leukocytosis -Follow inflammatory markers follow blood cultures -She does have a sacral DTI, will monitor Acute anemia # Iron studies, ferritin, Hemoccult stool Type 2 diabetes mellitus, low-dose sliding scale History of PD dialysis, PD catheter in place, n.p.o. midnight EGD tomorrow morning spoke to general surgery Attestations 2 Medical Necessity Statement*: Patient requires hospitalization for GI bleed, abdominal pain, leukocytosis Diagnoses GI bleed K92.2 Abdominal pain R10.9 Leukocytosis D72.829 Acute anemia D64.9
--- NOTE | 2024-07-30 16:34 | P.CONIM_ITS ---
Providers/Reason For Consult 2 Consulting Physician/Specialty*: Dr Nelson general surgery Reason for Consult*: Melena Attending Physician: Luke Archibald MD Primary Care Provider: Asif Grijalva History of Present Illness History of Present Illness Ashleigh Adan is a 78 year old female whom general surgery was consulted for occult GI bleed. Concern for melena. Hematochezia. No weight loss. Medications/Allergies Home Medications Medication Instructions Recorded Confirmed Last Taken Type acetaminophen 325 mg tablet 650 mg PO QID PRN Pain 07/28/24 07/28/24 07/24/24 History alprazolam 0.5 mg tablet 0.5 mg PO BEDTIME PRN Anxiety 07/28/24 07/28/24 07/24/24 History amlodipine 10 mg tablet 10 mg PO DAILY 07/28/24 07/28/24 07/28/24 History aspirin 81 mg chewable tablet 81 mg PO DAILY 07/28/24 07/28/24 07/28/24 History bisacodyl 10 mg rectal suppository See Rx Instructions .Route 07/28/24 07/28/24 Unknown History (Dulcolax (bisacodyl)) .COMPLEX PRN Constipation diphenoxylate-atropine 2.5 1 tab PO QID PRN Diarrhea/loose 07/28/24 07/28/24 07/23/24 History mg-0.025 mg tablet stools gentamicin 0.1 % topical cream See Rx Instructions .Route .COMPLEX 07/28/24 07/28/24 07/27/24 History heparin (porcine) 1,000 unit/mL See Rx Instructions .Route .COMPLEX 07/28/24 07/28/24 07/20/24 History injection solution hydralazine 25 mg tablet 25 mg PO Q6H PRN bp 07/28/24 07/28/24 Unknown History hydroxyzine HCl 25 mg tablet 25 mg PO BEDTIME 07/28/24 07/28/24 07/27/24 History ddjlcq-sxbeqbcy-eroonkg 1 cap PO TID 07/28/24 07/28/24 07/28/24 History 6,000-19,000-30,000 unit capsule,delayed rel (Creon) menthol 0.44 %-zinc oxide 20.6 % See Rx Instructions .Route .COMPLEX 07/28/24 07/28/24 07/27/24 History topical ointment (Calmoseptine) pantoprazole 40 mg tablet,delayed 40 mg PO QAM 07/28/24 07/28/24 07/28/24 History release potassium chloride 20 mEq 20 meq PO DAILY 07/28/24 07/28/24 07/28/24 History tablet,extended release(part/cryst) promethazine 25 mg tablet 25 mg PO BID PRN nausea/emesis 07/28/24 07/28/24 07/25/24 History sertraline 25 mg tablet 25 mg PO BEDTIME 07/28/24 07/28/24 07/27/24 History sodium bicarbonate 650 mg tablet 1,300 mg PO DAILY 07/28/24 07/28/24 07/28/24 History tizanidine 2 mg tablet 2 mg PO Q8H PRN Spasms 07/28/24 07/28/24 07/24/24 History vitamin B complex-vitamin C-folic 1 tab PO DAILY 07/28/24 07/28/24 07/28/24 History acid 0.8 mg tablet (Nephro-Cayden) Allergies Allergy/AdvReac Type Severity Reaction Status Date / Time cyclobenzaprine Allergy Unknown Verified 07/28/24 13:55 hydrocodone Allergy Unknown Verified 07/28/24 13:55 lisinopril Allergy Unknown Verified 07/28/24 13:55 ondansetron Allergy Unknown Verified 07/28/24 13:55 Xpfeuxw-WCM-YpG Reductase Allergy Unknown Verified 07/28/24 13:55 Inhibitor codeine sulfate Allergy Unknown Uncoded 07/28/24 13:55 Current Medications Generic Name Dose Route Start Last Admin Trade Name Crispin PRN Reason Stop Dose Admin Acetaminophen 650 mg 07/28/24 16:45 07/30/24 08:22 Acetaminophen 325 Mg Tablet PO 650 mg Q6H PRN Administration Mild/Mod Pain Or Temp >/= 101 Amlodipine Besylate 10 mg 07/30/24 04:15 07/30/24 08:22 Amlodipine 10 Mg Tablet PO 10 mg DAILY VU Administration Lipase/Protease/Amylase 1 each 07/28/24 21:00 07/30/24 15:46 Mpwydi-Jssfwjkf-Pcplvdf Capsule PO 1 each TID VU Administration Heparin Sodium (Porcine) 5,000 unit 07/28/24 21:00 07/30/24 08:23 Heparin 5,000 Unit/Ml Inj 1 Ml SUBCUT 5,000 unit Q12H VU Administration Hydralazine HCl 25 mg 07/29/24 09:00 07/30/24 15:47 Hydralazine 25 Mg Tablet PO 25 mg TID VU Administration Hydroxyzine Pamoate 25 mg 07/28/24 21:00 07/29/24 20:17 Hydroxyzine 25 Mg Capsule PO 25 mg BEDTIME VU Administration Piperacillin Sod/Tazobactam 50 mls @ 12.5 mls/hr 07/28/24 17:45 07/30/24 12:28 Sod 3.375 gm/ Sodium Chloride IV Infused Q12H VU Infusion Protocol Insulin Human Lispro 0 unit 07/28/24 18:00 07/30/24 12:07 Insulin Lispro 100 Unit/1 Ml SUBCUT Not Given TIDWM VU Protocol Pantoprazole Sodium 40 mg 07/29/24 04:00 07/30/24 15:46 Pantoprazole 40 Mg Sdv IVP 40 mg Q12H VU Administration Peritoneal Dialysis Solution 2,000 ml 07/28/24 21:15 07/28/24 23:16 Dianeal Low Ca W/1.5% Dex 2,000 Ml Bag INTRAPERIT 2,000 ml NOW VU Administration Peritoneal Dialysis Solution 2,000 ml 07/29/24 11:00 07/29/24 21:54 Dianeal Low Ca W/1.5% Dex 2,000 Ml Bag INTRAPERIT 2,000 ml DAILY VU Administration Sertraline HCl 25 mg 07/28/24 21:00 07/29/24 20:17 Sertraline 50 Mg Tablet PO 25 mg BEDTIME VU Administration Sodium Bicarbonate 1,300 mg 07/29/24 09:00 07/30/24 08:22 Sodium Bicarbonate 650 Mg Tablet PO 1,300 mg DAILY VU Administration Sucralfate 1 gm 07/28/24 16:45 07/30/24 15:46 Sucralfate 1 Gm/10 Ml Oral Liq Udc PO 1 gm Q6H UV Administration PFSH Acute 2 PFSH: Medical History (Updated 07/28/24 @ 16:41 by Luke Archibald MD) History of colon cancer Type 2 diabetes mellitus Surgical History (Updated 07/28/24 @ 16:39 by Luke Archibald MD) History of colectomy Social History (Updated 07/28/24 @ 16:39 by Luke Archibald MD) Smoking and tobacco/nicotine status: never used tobacco/nicotine Alcohol intake: never Substance/Drug Use: never Vitals/I&O/Wt Last Vital Signs Temp 99.1 F 07/30/24 16:00 Pulse 99 07/30/24 16:00 Resp 16 07/30/24 16:00 BP 146/64 07/30/24 16:00 Pulse Ox 96 07/30/24 16:00 O2 Del Method Room Air 07/30/24 16:00 07/30/24 07/30/24 07/30/24 06:59 14:59 22:59 Intake Total 50 / 975 650 / 650 Balance 50 / 925 650 / 650 Weight last 48 hrs Weight 136 lb 11.2 oz Weight 128 lb 4.8 oz Weight 128 lb 4.8 oz Physical Exam 2 Narrative: Chest: Unlabored breathing room air. No lymphadenopathy. Heart: Regular rate and rhythm. Abdomen: Soft, nontender, nondistended. No masses or lymphadenopathy. Data 07/31/24 04:37 07/31/24 04:37 Micro: Microbiology 07/29/24 05:45 Gram Stain - Final Peritoneal Fluid Anaerobic Culture - Preliminary Body Fluid Culture - Preliminary 07/28/24 14:11 Blood Culture - Preliminary Blood NEGATIVE TO DATE 07/28/24 13:55 Blood Culture - Preliminary Blood NEGATIVE TO DATE A&P Assessment and plan (1) Upper gastrointestinal hemorrhage: Plan 78-year-old female general surgery consulted for melena. I have explained the risks and benefits of a diagnostic EGD and the patient agrees to proceed. Coding Level of Care Code Acute Code for Chg Fwd Diagnoses Upper gastrointestinal hemorrhage K92.2
[2024-07-30 16:37] LABS: Glucose Point of Care 101 mg/dL (70-110)
[2024-07-30 20:15] LABS: Glucose Point of Care 114 mg/dL (70-110)
[2024-07-30] MEDS: sertraline 50 mg Tablet 25 MG PO (20:18)
[2024-07-30] MEDS: hyDROXYzine 25 mg Capsule PO (20:18)
[2024-07-30] MEDS: Dianeal low Ca w/1.5% dex 2,000 mL Bag 2000 ML INTRAPERIT (21:52)
[2024-07-31] VITALS (13 sets, daily range): BP systolic 149–168; BP diastolic 67–74; PULSE 82–106; RESP 16–18; TEMP 36.3–37.2; O2SAT 93–99
[2024-07-31] MEDS: pantoprazole 40 mg SDV IVP ×2 (04:48→15:02)
[2024-07-31] MEDS: sucralfate 1 gm/10 mL Oral Liq UDC PO ×4 (04:48→20:55)
[2024-07-31 05:20] LABS: Basophils % 0.3 %; Eosinophils # 0.2 10^3/uL (0.0-0.8); Eosinophils % 1.2 %; Hematocrit 26.9 % (36-47); Lymphocytes # 1.7 10^3/uL (0.8-4.8); Lymphocytes % 13.5 %; Mean Corpuscular HGB Conc 32.7 g/dL (30-55); Mean Corpuscular Volume 100.7 fl (85-98); Mean Platelet Volume 10.1 fL (7.4-10.4); Monocytes # 1.1 10^3/uL (0.2-0.9); Monocytes % 9.2 %; Neutrophils % 75.2 %; Nucleated Red Blood Cells # 0.1 /100WBC; Nucleated Red Blood Cells % 0.9 %; Platelet Count 498 10^3/cmm (157-399); Red Blood Count 2.67 10^6/uL (3.85-5.65); Red Cell Distribution Width 16.4 % (12.1-15.1); White Blood Count 12.37 10^3/uL (3.29-11.43)
[2024-07-31 05:45] LABS: Alanine Aminotransferase 14 U/L (0-33); Albumin Level 2.3 g/dL (3.5-5.2); Alkaline Phosphatase 123 U/L (35-105); Anion Gap 17.5 (5-19); Aspartate Amino Transferase 20 U/L (0-32); Blood Urea Nitrogen 47 mg/dL (8-23); Calcium 8.8 mg/dL (8.5-10.5); Carbon Dioxide 22 mmol/L (22-29); Chloride 100 mmol/L (98-107); Creatinine Clr Calc Pharmacy 7.6055; Globulin 3.8 g/dL (1.3-4.6); Glucose 99 mg/dL (65-115); Magnesium 1.6 mg/dL (1.7-2.3); Osmolality Calculated 294 mOsm/kg (285-295); Phosphorus 3.7 mg/dL (2.5-4.5); Potassium 3.5 mmol/L (3.5-5.1); Sodium 136 mmol/L (136-145); Total Bilirubin 0.4 mg/dL (0.15-1.2); Total Protein 6.1 g/dL (6.6-8.7)
[2024-07-31 05:51] LABS: C Reactive Protein 59.7 mg/L (0.0-4.9)
[2024-07-31 06:11] LABS: Glucose Point of Care 101 mg/dL (70-110)
[2024-07-31 06:25] LABS: Procalcitonin 0.45 ng/mL (0-0.5)
--- NOTE | 2024-07-31 08:25 | P.PN_ITS ---
Subjective 2 Subjective: plan for EGD today Medications: Reviewed: Yes Vitals/I&O/Wt Last Vital Signs Temp 98.5 F 07/31/24 07:34 Pulse 90 07/31/24 07:34 Resp 17 07/31/24 07:34 BP 168/69 07/31/24 07:34 Pulse Ox 93 07/31/24 07:34 O2 Del Method Room Air 07/31/24 07:34 07/30/24 07/31/24 07/31/24 22:59 06:59 14:59 Intake Total 240 / 890 50 / 940 Balance 240 / 890 50 / 940 Weight last 48 hrs Weight 62.006 kg Weight 62.006 kg Weight 58.196 kg Physical Exam 2 Narrative: Patient is awake alert no distress HEENT S1-S2 regular rate and rhythm per report Lungs clear per report Abdomen soft , nontender, PD catheter in place No pedal edema Data 07/31/24 04:37 07/31/24 04:37 Micro: Microbiology 07/29/24 05:45 Gram Stain - Final Peritoneal Fluid Anaerobic Culture - Preliminary Body Fluid Culture - Preliminary A&P Assessment and plan (1) End stage renal disease on dialysis: 1. End-stage renal disease: On peritoneal dialysis, patient uses cycler with 4 exchanges and 6 L fluid x 8 hours at night -Will do manual exchange here with 1.5% dextrose solution dwell for 8 hours 2. Nausea vomiting and dark tarry stool: Question GI bleed, does not have clinical signs of peritonitis, neg PD fluid cultures, CT scan unremarkable, EGD today 3. Hypokalemia: repleted 4. Anemia: s/p OZZY 5. History of diabetes 6. Hypertension: Resume home meds Patient evaluated using audiovisual cart. Time spent 40 minutes. Attestations 2 Medical Necessity Statement*: per [place] Coding Level of Care Code Acute Code for Chg Fwd Diagnoses End stage renal disease on dialysis N18.6; Z99.2
[2024-07-31] MEDS: sodium bicarbonate 650 mg Tablet 1300 MG PO (09:06)
[2024-07-31] MEDS: lipase-protease-amylase Capsule 1 EACH PO ×3 (09:06→20:55)
[2024-07-31] MEDS: hyDRALAzine 25 mg Tablet PO ×3 (09:07→20:55)
[2024-07-31] MEDS: amlodipine 10 mg Tablet PO (09:07)
[2024-07-31] MEDS: heparin 5,000 unit/mL INJ 1 mL 5000 UNIT SUBCUT ×2 (09:07→20:55)
[2024-07-31] MEDS: piperacillin-tazobactam 3.375 GM in sodium chloride 0.9% (plus) 50 ML IV (09:07)
--- NOTE | 2024-07-31 12:12 | ANES.PREANE2 ---
Pre-Anesthetic Assessment Height/Weight: Height 1.6 m Weight 62.006 kg Temp Pulse Resp BP Pulse Ox O2 Del Method 98.5 F 90 17 168/69 93 Room Air 07/31/24 07:34 07/31/24 07:34 07/31/24 07:34 07/31/24 07:34 07/31/24 07:34 07/31/24 07:34 Preop Diagnosis: GI bleed Operation Date: 07/31/24 12:30 Proposed Procedures p EGD(Not Applicable) - Ellis Nelson MD Was Beta Kartik taken within 24 hours: N/A Was Clonidine taken within 24 hours: N/A Last intake: Intake Last Liquid Date 07/31/24 Last Liquid Time 08:30 Last Solid Date 07/28/24 Social No alcohol and No tobacco Exam alert, oriented x 3, clear to auscultation bilaterally and regular rate & rhythm Airway Submandibular: within normal limits Cervical ROM: within normal limits Mallampati: Class II Dentition: full History/ROS No significant history except as noted and No significant complaints Pulmonary None reported CV/HEM Hypertension Chronic Renal Failure Peritoneal dialysis Hepatic None reported GI None reported Metabolic Diabetes Mellitus [facility] [place] Osteoarthritis/DJD Neuropsych Anxiety and Dementia Anesthetic Plan ASA status: 3 Anesthesia: Anesthesia Evaluation and MAC Risk of > 500 ml blood loss (7ml/kg in children): No Medications/Allergies Home Medications Medication Instructions Recorded Confirmed Last Taken Type acetaminophen 325 mg tablet 650 mg PO QID PRN Pain 07/28/24 07/28/24 07/24/24 History alprazolam 0.5 mg tablet 0.5 mg PO BEDTIME PRN Anxiety 07/28/24 07/28/24 07/24/24 History amlodipine 10 mg tablet 10 mg PO DAILY 07/28/24 07/28/24 07/28/24 History aspirin 81 mg chewable tablet 81 mg PO DAILY 07/28/24 07/28/24 07/28/24 History bisacodyl 10 mg rectal suppository See Rx Instructions .Route 07/28/24 07/28/24 Unknown History (Dulcolax (bisacodyl)) .COMPLEX PRN Constipation diphenoxylate-atropine 2.5 1 tab PO QID PRN Diarrhea/loose 07/28/24 07/28/24 07/23/24 History mg-0.025 mg tablet stools gentamicin 0.1 % topical cream See Rx Instructions .Route .COMPLEX 07/28/24 07/28/24 07/27/24 History heparin (porcine) 1,000 unit/mL See Rx Instructions .Route .COMPLEX 07/28/24 07/28/24 07/20/24 History injection solution hydralazine 25 mg tablet 25 mg PO Q6H PRN bp 07/28/24 07/28/24 Unknown History hydroxyzine HCl 25 mg tablet 25 mg PO BEDTIME 07/28/24 07/28/24 07/27/24 History fsnalm-raisjnso-ukvjtoe 1 cap PO TID 07/28/24 07/28/24 07/28/24 History 6,000-19,000-30,000 unit capsule,delayed rel (Creon) menthol 0.44 %-zinc oxide 20.6 % See Rx Instructions .Route .COMPLEX 07/28/24 07/28/24 07/27/24 History topical ointment (Calmoseptine) pantoprazole 40 mg tablet,delayed 40 mg PO QAM 07/28/24 07/28/24 07/28/24 History release potassium chloride 20 mEq 20 meq PO DAILY 07/28/24 07/28/24 07/28/24 History tablet,extended release(part/cryst) promethazine 25 mg tablet 25 mg PO BID PRN nausea/emesis 07/28/24 07/28/24 07/25/24 History sertraline 25 mg tablet 25 mg PO BEDTIME 07/28/24 07/28/24 07/27/24 History sodium bicarbonate 650 mg tablet 1,300 mg PO DAILY 07/28/24 07/28/24 07/28/24 History tizanidine 2 mg tablet 2 mg PO Q8H PRN Spasms 07/28/24 07/28/24 07/24/24 History vitamin B complex-vitamin C-folic 1 tab PO DAILY 07/28/24 07/28/24 07/28/24 History acid 0.8 mg tablet (Nephro-Cayden) Allergies Allergy/AdvReac Type Severity Reaction Status Date / Time cyclobenzaprine Allergy Unknown Verified 07/28/24 13:55 hydrocodone Allergy Unknown Verified 07/28/24 13:55 lisinopril Allergy Unknown Verified 07/28/24 13:55 ondansetron Allergy Unknown Verified 07/28/24 13:55 Rnsapia-KOL-DfP Reductase Allergy Unknown Verified 07/28/24 13:55 Inhibitor codeine sulfate Allergy Unknown Uncoded 07/28/24 13:55 Current Medications Generic Name Dose Route Start Last Admin Trade Name Freq PRN Reason Stop Dose Admin Acetaminophen 650 mg 07/28/24 16:45 07/30/24 08:22 Acetaminophen 325 Mg Tablet PO 650 mg Q6H PRN Administration Mild/Mod Pain Or Temp >/= 101 Amlodipine Besylate 10 mg 07/30/24 04:15 07/31/24 09:07 Amlodipine 10 Mg Tablet PO 10 mg DAILY VU Administration Lipase/Protease/Amylase 1 each 07/28/24 21:00 07/31/24 09:06 Uekihb-Qxbxiynm-Durwqws Capsule PO 1 each TID VU Administration Heparin Sodium (Porcine) 5,000 unit 07/28/24 21:00 07/31/24 09:07 Heparin 5,000 Unit/Ml Inj 1 Ml SUBCUT 5,000 unit Q12H VU Administration Hydralazine HCl 25 mg 07/29/24 09:00 07/31/24 09:07 Hydralazine 25 Mg Tablet PO 25 mg TID VU Administration Hydroxyzine Pamoate 25 mg 07/28/24 21:00 07/30/24 20:18 Hydroxyzine 25 Mg Capsule PO 25 mg BEDTIME VU Administration Piperacillin Sod/Tazobactam 50 mls @ 12.5 mls/hr 07/28/24 17:45 07/31/24 10:01 Sod 3.375 gm/ Sodium Chloride IV 0 mls/hr Q12H VU Infusion Protocol Insulin Human Lispro 0 unit 07/28/24 18:00 07/31/24 11:44 Insulin Lispro 100 Unit/1 Ml SUBCUT Not Given TIDWM VU Protocol Pantoprazole Sodium 40 mg 07/29/24 04:00 07/31/24 04:48 Pantoprazole 40 Mg Sdv IVP 40 mg Q12H VU Administration Peritoneal Dialysis Solution 2,000 ml 07/28/24 21:15 07/28/24 23:16 Dianeal Low Ca W/1.5% Dex 2,000 Ml Bag INTRAPERIT 2,000 ml NOW VU Administration Peritoneal Dialysis Solution 2,000 ml 07/29/24 11:00 07/30/24 21:52 Dianeal Low Ca W/1.5% Dex 2,000 Ml Bag INTRAPERIT 2,000 ml DAILY VU Administration Sertraline HCl 25 mg 07/28/24 21:00 07/30/24 20:18 Sertraline 50 Mg Tablet PO 25 mg BEDTIME VU Administration Sodium Bicarbonate 1,300 mg 07/29/24 09:00 07/31/24 09:06 Sodium Bicarbonate 650 Mg Tablet PO 1,300 mg DAILY VU Administration Sucralfate 1 gm 07/28/24 16:45 07/31/24 04:48 Sucralfate 1 Gm/10 Ml Oral Liq Udc PO 1 gm Q6H VU Administration PFSH Anesthesia Medical History (Updated 07/28/24 @ 16:41 by Luke Archibald MD) History of colon cancer Type 2 diabetes mellitus Surgical History (Updated 07/28/24 @ 16:39 by Luke Archibald MD) History of colectomy Social History (Updated 07/28/24 @ 16:39 by Luke Archibald MD) Smoking and tobacco/nicotine status: never used tobacco/nicotine Alcohol intake: never Substance/Drug Use: never Data Anesthesia 07/31/24 04:37 07/31/24 04:37 Short CBC 07/29/24 07/30/24 07/31/24 Range/Units 14:22 04:42 04:37 WBC 16.10 H 12.37 H (3.29-11.43) 10^3/uL Hgb 9.40 L 9.50 L 8.80 L (11.27-16.99) g/dL Hct 28.5 L 28.9 L 26.9 L (36-47) % MCV 100.7 H 100.7 H (85-98) fl Plt Count 556 H 498 H (157-399) 10^3/cmm Neut % (Auto) 78.7 75.2 % Neut # (Auto) 12.66 H 9.30 H (1.8-7.7) 10^3/uL BMP 07/30/24 07/31/24 04:42 04:37 Sodium 136 136 Potassium 3.8 3.5 Chloride 100 100 Carbon Dioxide 21 L 22 BUN 46 H 47 H Creatinine 5.2 H 5.5 H Glucose 105 99 Calcium 8.3 L 8.8 Liver Function 07/30/24 07/31/24 Range/Units 04:42 04:37 Total Bilirubin 0.4 0.4 (0.15-1.2) mg/dL AST 24 20 (0-32) U/L ALT 17 14 (0-33) U/L Alkaline Phosphatase 125 H 123 H (35-105) U/L Albumin 2.5 L 2.3 L (3.5-5.2) g/dL Coags 07/30/24 07/31/24 04:42 04:37 ESR 63 H C-Reactive Protein 59.7 H Microbiology 07/29/24 05:45 Gram Stain - Final Peritoneal Fluid Anaerobic Culture - Final Body Fluid Culture - Preliminary Cardiac Studies: No Data to Display
--- NOTE | 2024-07-31 12:34 | SUR.PREOP ---
Applied warm compress to swollen right forearm, pt stated it felt better.
--- NOTE | 2024-07-31 12:36 | PICC.NOTE ---
Floor nurses unable to start IV. Using US guidance, 20 gauge started to left AC x 1 stick. Good blood return noted. Flushed with saline. Pt tolerated well.
--- NOTE | 2024-07-31 13:22 | P.PN_ITS ---
Subjective 2 Subjective: no new c/o Medications: Reviewed: Yes Vitals/I&O/Wt Last Vital Signs Temp 98.8 F 07/31/24 11:45 Pulse 98 07/31/24 11:45 Resp 16 07/31/24 11:45 BP 149/67 07/31/24 11:45 Pulse Ox 99 07/31/24 11:45 O2 Del Method Room Air 07/31/24 11:45 07/30/24 07/31/24 07/31/24 22:59 06:59 14:59 Intake Total 240 / 890 50 / 940 .08.04 Balance 240 / 890 50 / 940 08.04 Weight last 48 hrs Weight 62.006 kg Weight 62.006 kg Weight 58.196 kg Physical Exam 2 Narrative: Patient is awake alert no distress HEENT S1-S2 regular rate and rhythm per report Lungs clear per report Abdomen soft , nontender, PD catheter in place No pedal edema Data 08/01/24 04:43 08/01/24 04:43 Micro: Microbiology 07/29/24 05:45 Gram Stain - Final Peritoneal Fluid Anaerobic Culture - Final Body Fluid Culture - Preliminary A&P Assessment and plan (1) End stage renal disease on dialysis: 1. End-stage renal disease: On peritoneal dialysis, patient uses cycler with 4 exchanges and 6 L fluid x 8 hours at night -Will do manual exchange here with 1.5% dextrose solution dwell for 8 hours 2. Nausea vomiting and dark tarry stool: Question GI bleed, does not have clinical signs of peritonitis, neg PD fluid cultures, CT scan unremarkable, EGD today 3. Hypokalemia: repleted 4. Anemia: s/p OZZY 5. History of diabetes 6. Hypertension: Resume home meds Patient evaluated using audiovisual cart. Time spent 40 minutes. Attestations 2 Medical Necessity Statement*: per [place] Coding Level of Care Code Acute Code for Chg Fwd Diagnoses End stage renal disease on dialysis N18.6; Z99.2
--- NOTE | 2024-07-31 13:55 | ANE.PACU2 ---
Inpatient post-anesthesia follow up: Airway intact: Yes Vital signs: Temperature 98.1 F Pulse Rate 86 Respiratory Rate 17 Blood Pressure 175/68 Pulse Oximetry 96 Oxygen Delivery Me thod Room Air Oxygen Flow Rate Fraction of Inspir ed Oxygen Hydration adequate: Yes Nausea and vomiting: No Pain level: 1 Mental status: Baseline
[2024-07-31] MEDS: morphine 4 mg/mL SDV 1 mL 2 MG IVP (15:02)
[2024-07-31 16:46] LABS: Glucose Point of Care 109 mg/dL (70-110)
--- NOTE | 2024-07-31 17:52 | P.PN_ITS ---
Subjective 2 Subjective: Patient was seen this morning, she is sitting up in a chair, denies any nausea, no vomiting, no fevers, no chills discussed plans on EGD today, she denies any bloody stools overnight Vitals/I&O/Wt Last Vital Signs Temp 98.6 F 07/31/24 14:11 Pulse 96 07/31/24 14:11 Resp 17 07/31/24 15:02 BP 154/74 07/31/24 14:11 Pulse Ox 96 07/31/24 14:11 O2 Del Method Room Air 07/31/24 14:11 07/31/24 07/31/24 07/31/24 06:59 14:59 22:59 Intake Total 50 / 940 . / . 9.375 / 20.625 Balance 50 / 940 .08.04 9.375 / 20.625 Weight last 48 hrs Weight 62.006 kg Weight 62.006 kg Weight 58.196 kg Physical Exam 2 Const: COMMON NORMALS: no acute distress and patient oriented x3 Resp: COMMON NORMALS: normal respiratory effort, No retractions, No use of accessory muscles and clear to auscultation bilaterally AUSCULTATION: clear to auscultation bilaterally Cardio: COMMON NORMALS: regular rate, regular rhythm, S1 normal heart sound present and S2 normal heart sound present RATE: regular rate RHYTHM: r egular rhythm HEART SOUNDS: S1 normal heart sound present and S2 normal heart sound present GI: COMMON NORMALS: Normal to inspection, nondistended, normoactive bowel sounds present and non-tender Extremity: COMMON NORMALS: no pedal edema Neuro: COMMON NORMALS: patient oriented x3 Psych: COMMON NORMALS: mental status grossly normal Data 07/31/24 04:37 07/31/24 04:37 Micro: Microbiology 07/29/24 05:45 Gram Stain - Final Peritoneal Fluid Anaerobic Culture - Final Body Fluid Culture - Preliminary A&P Assessment and plan (1) GI bleed: (2) Abdominal pain: (3) Leukocytosis: (4) Acute anemia: Plan GI bleed -Complaints of black tarry stools, vomiting coffee-ground emesis -She is on aspirin -Hemoglobin improved to down to 8.8 Plan -Monitor closely -Monitor hemoglobin closely -Protonix -Carafate -Transfuse hemoglobin if less than 7 ? General Surgery consulted for EGD today -Full code -SCDs for DVT prophylaxis Abdominal pain -Elevated leukocytosis, elevated lipase, elevated CRP Plan -CT scan abdomen pelvis with IV contrast CT/CT abdomen pelvis w con* [id number] IMPRESSION: 1. No acute findings. 2. Peritoneal dialysis with small perihepatic and perisplenic fluid collections. -Peritoneal cultures pending, possible peritonitis? -Continue IV Zosyn Leukocytosis -Follow inflammatory markers follow blood cultures -She does have a sacral DTI, will monitor Acute anemia # Iron studies, ferritin, Hemoccult stool Type 2 diabetes mellitus, low-dose sliding scale History of PD dialysis, PD catheter in place, n.p.o. midnight EGD tomorrow morning spoke to general surgery Plan for today continue IV antibiotics, EGD Attestations 2 Medical Necessity Statement*: Patient requires hospitalization for GI bleed, abdominal pain, leukocytosis Diagnoses GI bleed K92.2 Abdominal pain R10.9 Leukocytosis D72.829 Acute anemia D64.9
[2024-07-31] MEDS: sertraline 50 mg Tablet 25 MG PO (20:55)
[2024-07-31] MEDS: hyDROXYzine 25 mg Capsule PO (20:55)
[2024-07-31] MEDS: Dianeal low Ca w/1.5% dex 2,000 mL Bag 2000 ML INTRAPERIT (20:56)
[2024-07-31 21:18] LABS: Glucose Point of Care 116 mg/dL (70-110)
[2024-08-01] VITALS (7 sets, daily range): BP systolic 143–175; BP diastolic 61–70; PULSE 86–96; RESP 17–18; TEMP 36.6–36.8; O2SAT 95–97
[2024-08-01] MEDS: piperacillin-tazobactam 3.375 GM in sodium chloride 0.9% (plus) 50 ML IV (01:33)
[2024-08-01] MEDS: pantoprazole 40 mg SDV IVP (03:54)
[2024-08-01] MEDS: sucralfate 1 gm/10 mL Oral Liq UDC PO ×2 (03:55→10:39)
[2024-08-01 05:10] LABS: Basophils % 0.4 %; Eosinophils # 0.2 10^3/uL (0.0-0.8); Eosinophils % 1.3 %; Hematocrit 28.6 % (36-47); Lymphocytes # 1.6 10^3/uL (0.8-4.8); Lymphocytes % 14.2 %; Mean Corpuscular HGB Conc 32.5 g/dL (30-55); Mean Corpuscular Hemoglobin 33.3 pg (27-33); Mean Corpuscular Volume 102.5 fl (85-98); Monocytes % 9.1 %; Neutrophils # 8.39 10^3/uL (1.8-7.7); Neutrophils % 74.3 %; Nucleated Red Blood Cells # 0.1 /100WBC; Platelet Count 482 10^3/cmm (157-399); Red Blood Count 2.79 10^6/uL (3.85-5.65); Red Cell Distribution Width 16.4 % (12.1-15.1); White Blood Count 11.29 10^3/uL (3.29-11.43)
[2024-08-01 05:31] LABS: C Reactive Protein 48.6 mg/L (0.0-4.9)
[2024-08-01 05:32] LABS: Blood Urea Nitrogen 46 mg/dL (8-23); Calcium 8.7 mg/dL (8.5-10.5); Carbon Dioxide 21 mmol/L (22-29); Chloride 101 mmol/L (98-107); Creatinine Clr Calc Pharmacy 7.1845; Glucose 97 mg/dL (65-115); Osmolality Calculated 296 mOsm/kg (285-295); Sodium 137 mmol/L (136-145)
[2024-08-01 05:35] LABS: Procalcitonin 0.46 ng/mL (0-0.5)
[2024-08-01 05:37] LABS: Anion Gap 18.6 (5-19); Potassium 3.6 mmol/L (3.5-5.1)
[2024-08-01 06:43] LABS: Glucose Point of Care 104 mg/dL (70-110)
--- NOTE | 2024-08-01 07:55 | P.PN_ITS ---
Subjective 2 Subjective: no new c/o Medications: Reviewed: Yes Vitals/I&O/Wt Last Vital Signs Temp 98.0 F 08/01/24 07:27 Pulse 93 08/01/24 07:27 Resp 17 08/01/24 07:27 BP 158/61 08/01/24 07:27 Pulse Ox 97 08/01/24 07:27 O2 Del Method Room Air 08/01/24 07:27 07/31/24 08/01/24 08/01/24 22:59 06:59 14:59 Intake Total 278.750 / 290.000 50 / 340.000 Balance 278.750 / 290.000 50 / 340.000 Weight last 48 hrs Weight 59.052 kg Weight 62.006 kg Physical Exam 2 Narrative: Patient is awake alert no distress HEENT S1-S2 regular rate and rhythm per report Lungs clear per report Abdomen soft , nontender, PD catheter in place No pedal edema Data 08/01/24 04:43 08/01/24 04:43 Micro: Microbiology 07/29/24 05:45 Gram Stain - Final Peritoneal Fluid Anaerobic Culture - Final Body Fluid Culture - Preliminary A&P Assessment and plan (1) End stage renal disease on dialysis: 1. End-stage renal disease: On peritoneal dialysis, patient uses cycler with 4 exchanges and 6 L fluid x 8 hours at night -Will do manual exchange here with 1.5% dextrose solution dwell for 8 hours 2. Nausea vomiting and dark tarry stool: Question GI bleed, does not have clinical signs of peritonitis, neg PD fluid cultures, CT scan unremarkable, EGD today 3. Hypokalemia: repleted 4. Anemia: s/p OZZY 5. History of diabetes 6. Hypertension: Resume home meds Patient evaluated using audiovisual cart. Time spent 40 minutes. Attestations 2 Medical Necessity Statement*: per medicine Coding Level of Care Code Acute Code for Chg Fwd Diagnoses End stage renal disease on dialysis N18.6; Z99.2
[2024-08-01] MEDS: lipase-protease-amylase Capsule 1 EACH PO (09:26)
[2024-08-01] MEDS: hyDRALAzine 25 mg Tablet PO (09:26)
[2024-08-01] MEDS: sodium bicarbonate 650 mg Tablet 1300 MG PO (09:26)
[2024-08-01] MEDS: amlodipine 10 mg Tablet PO (09:26)
[2024-08-01] MEDS: heparin 5,000 unit/mL INJ 1 mL 5000 UNIT SUBCUT (09:27)
[2024-08-01] MEDS: morphine 4 mg/mL SDV 1 mL 2 MG IVP (10:37)
[2024-08-01 11:04] LABS: Glucose Point of Care 175 mg/dL (70-110)
[2024-08-01] MEDS: insulin lispro 100 unit/1 mL SUBCUT (11:24)
[2024-08-01] MEDS: acetaminophen 325 mg Tablet 650 MG PO (11:24)
--- NOTE | 2024-08-01 11:25 | PM.DCS ---
Discharge Providers Date of Admission: 07/28/24 15:30 Date of Discharge: August 01, 2024 Attending Provider at Admission: Luke Archibald MD Attending Provider at Discharge: Luke Archibald MD Primary Care Provider: Asif Grijalva Diagnoses at Discharge Discharge Diagnosis (1) End stage renal disease on dialysis: Status: Acute Reason for Visit Reason for Visit: bloody stool Hospital Course Hospital Course Ashleigh Adan is a 78 year old female with a past medical history of colon cancer status post colectomy, end-stage renal disease on peritoneal dialysis, light chain amyloidosis, anxiety disorder, history of hepatitis C, history of type 2 diabetes mellitus, history of lupus, who presents to [facility] due to abdominal pain, nausea, vomiting, diarrhea, complaints of bloody stools, complaints of coffee-ground emesis, black tarry stools with blood throughout the last week. Currently patient is alert to person, to place, not to time she follows all commands. Currently patient is complaining of weakness, fatigue, abdominal pain in the lower abdomen. She denies any fevers, no chills, no lightheadedness, no dizziness. Does report poor appetite. She does report she has had a appendectomy. Reports bloody stools. Reports black tarry vomit. Spoke to [facility] facility, [facility], nursing staff at [facility] report that she has been at [facility] since September, she was hospitalized at an outside hospital for reasons unknown, she did leave [facility] from [facility] sometime thereafter, and eventually got readmitted due to weakness, since being at the halfway, for the last 2 weeks she has been complaining of nausea, vomiting, abdominal pain weakness, fatigue she has had intermittent coffee-ground emesis, black tarry stools at times, this morning she continued to have abdominal pain so she wanted to come to [facility] for further evaluation This is a 78-year-old female who presents [facility] for concerns for GI bleed, hemoglobin down to 8.8, underwent EGD, no significant findings, hemoglobin remained stable, hemodynamically stable, no recurrent bloody or black stools. Will be discharged, with a close follow-up with primary care as outpatient, patient was advised if she were to have any recurrent bloody or black stool or black tarry vomit to go to the emergency room For abdominal pain, leukocytosis, elevated CRP, concerns for peritonitis given peritoneal dialysis , patient cultures so far have been unremarkable, she remains afebrile, no recurrent abdominal pain, fairly unlikely that she had peritonitis. She possibly could have had infectious gastroenteritis, does have discharged her on Augmentin. She does have a sacral DTI, continue to offload, continue to monitor Physical Exam Const: COMMON NORMALS: no acute distress and patient oriented x3 Resp: COMMON NORMALS: normal respiratory effort, No retractions, No use of accessory muscles and clear to auscultation bilaterally AUSCULTATION: clear to auscultation bilaterally Cardio: COMMON NORMALS: regular rate, regular rhythm, S1 normal heart sound present and S2 normal heart sound present RATE: regular rate RHYTHM: regular rhythm HEART SOUNDS: S1 normal heart sound present and S2 normal heart sound present GI: COMMON NORMALS: Normal to inspection, nondistended, normoactive bowel sounds present and non-tender Extremity: COMMON NORMALS: no pedal edema Neuro: COMMON NORMALS: patient oriented x3 Psych: COMMON NORMALS: mental status grossly normal Discharge Data Studies Completed and Pending Completed Studies During Hospitalization Category Date Time Status CT abdomen pelvis w con* [id number] Stat Cat Scan 07/28/24 15:49 Completed XR abdomen 1V* [id number] Stat Exams 07/28/24 13:40 Completed XR chest 1V portable [id number] Routine Exams 07/28/24 16:45 Completed Pending at discharge Category Date Time Status Amylase, Peritoneal Fluid Routine Lab 07/28/24 16:34 Received Anaerobic Culture Routine Lab 07/28/24 16:34 Results Basic Metabolic Panel AM LABS Lab 08/02/24 04:00 Ordered Basic Metabolic Panel AM LABS Lab 08/03/24 04:00 Ordered Blood Culture Stat Lab 07/28/24 14:11 Results Body Fluid Culture & GS Routine Lab 07/28/24 16:34 Results C Reactive Protein AM LABS Lab 08/02/24 04:00 Ordered Complete Blood Count w/Auto AM LABS Lab 08/02/24 04:00 Ordered Complete Blood Count w/Auto AM LABS Lab 08/03/24 04:00 Ordered Occult Blood Stool [Immunochemical Fecal OCB] Routine Lab 07/28/24 16:49 Uncollected Procalcitonin AM LABS Lab 08/02/24 04:00 Ordered SARS Covid-2 Antigen Stat Lab 08/01/24 10:45 Received Urinalysis Routine Lab 07/30/24 16:09 Uncollected Radiology Impressions Abdomen X-Ray 07/28/24 13:40 IMPRESSION: 1. Single dilated bowel loop in the RIGHT lower abdomen and pelvis that might represent localized ileus. No acute process noted at this time. Abdomen/Pelvis CT 07/28/24 15:49 IMPRESSION: 1. No acute findings. 2. Peritoneal dialysis with small perihepatic and perisplenic fluid collections. COMMENTS: Consistent with the [employer]'s Incidental Findings Committee white paper (J Am Luc Radiol 2018): Any incidental renal lesion less than 1 cm or classified as too small to characterize, or any incidental cystic renal lesion characterized as simple-appearing, is likely benign. No follow-up imaging is recommended for these lesions per consensus recommendations based on imaging criteria. Chest X-Ray 07/28/24 16:45 IMPRESSION: No acute cardiopulmonary disease. Laboratory Results WBC 11.29 10^3/uL (3.29-11.43) 08/01/24 04:43 RBC 2.79 10^6/uL (3.85-5.65) L 08/01/24 04:43 Hgb 9.30 g/dL (11.27-16.99) L 08/01/24 04:43 Hct 28.6 % (36-47) L 08/01/24 04:43 MCV 102.5 fl (85-98) H 08/01/24 04:43 MCH 33.3 pg (27-33) H 08/01/24 04:43 MCHC 32.5 g/dL (30-55) 08/01/24 04:43 RDW 16.4 % (12.1-15.1) H 08/01/24 04:43 Plt Count 482 10^3/cmm (157-399) H 08/01/24 04:43 MPV 10.0 fL (7.4-10.4) 08/01/24 04:43 Neut % (Auto) 74.3 % 08/01/24 04:43 Lymph % (Auto) 14.2 % 08/01/24 04:43 [place] % (Auto) 9.1 % 08/01/24 04:43 Eos % (Auto) 1.3 % 08/01/24 04:43 Baso % (Auto) 0.4 % 08/01/24 04:43 Neut # (Auto) 8.39 10^3/uL (1.8-7.7) H 08/01/24 04:43 Lymph # (Auto) 1.6 10^3/uL (0.8-4.8) 08/01/24 04:43 [place] # (Auto) 1.0 10^3/uL (0.2-0.9) H 08/01/24 04:43 Eos # (Auto) 0.2 10^3/uL (0.0-0.8) 08/01/24 04:43 Baso # (Auto) 0.0 10^3/uL (0.0-0.1) 08/01/24 04:43 Nucleated RBC % (auto) 1.0 % 08/01/24 04:43 Nucleated RBCs # 0.1 /100WBC 08/01/24 04:43 Differential Comment Yes 07/29/24 05:45 ESR 63 mm/hr (0-15) H 07/30/24 04:42 PT 15.50 SECONDS (12.1-14.9) H 07/28/24 14:11 INR 1.19 (0.8-1.2) 07/28/24 14:11 APTT 34.1 SECONDS (23.9-36.7) 07/28/24 14:11 Sodium 137 mmol/L (136-145) 08/01/24 04:43 Potassium 3.6 mmol/L (3.5-5.1) 08/01/24 04:43 Chloride 101 mmol/L (98-107) 08/01/24 04:43 Carbon Dioxide 21 mmol/L (22-29) L 08/01/24 04:43 Anion Gap 18.6 (5-19) 08/01/24 04:43 BUN 46 mg/dL (8-23) H 08/01/24 04:43 Creatinine 5.7 mg/dL (0.5-0.9) H* 08/01/24 04:43 GFR Calculation Not Reportable 08/01/24 04:43 Glucose 97 mg/dL (65-115) 08/01/24 04:43 POC Glucose 175 mg/dL (70-110) H 08/01/24 10:56 Estimat Average Glucose 85 07/28/24 14:11 Hemoglobin A1c 4.6 % (4.0-6.0) 07/28/24 14:11 Calculated Osmolality 296 mOsm/kg (285-295) H 08/01/24 04:43 Lactic Acid 1.9 mmol/L (0.5-2.2) 07/28/24 14:11 Calcium 8.7 mg/dL (8.5-10.5) 08/01/24 04:43 Phosphorus 3.7 mg/dL (2.5-4.5) 07/31/24 04:37 Magnesium 1.6 mg/dL (1.7-2.3) L 07/31/24 04:37 Iron 43 ug/dL (37-145) 07/28/24 14:11 TIBC 160 mcg/dl 07/28/24 14:11 % Saturation 26.8 % (20-50) 07/28/24 14:11 Unsat Iron Binding 117 ug/dL (112-347) 07/28/24 14:11 Ferritin 4000 ng/mL (15-150) H 07/28/24 14:11 Total Bilirubin 0.4 mg/dL (0.15-1.2) 07/31/24 04:37 GGT 55 U/L (5-36) H 07/28/24 14:11 AST 20 U/L (0-32) 07/31/24 04:37 ALT 14 U/L (0-33) 07/31/24 04:37 Alkaline Phosphatase 123 U/L (35-105) H 07/31/24 04:37 C-Reactive Protein 48.6 mg/L (0.0-4.9) H 08/01/24 04:43 Total Protein 6.1 g/dL (6.6-8.7) L 07/31/24 04:37 Albumin 2.3 g/dL (3.5-5.2) L 07/31/24 04:37 Globulin 3.8 g/dL (1.3-4.6) 07/31/24 04:37 Triglycerides 90 mg/dL (0-150) 07/28/24 14:11 Cholesterol 176 mg/dL (0-200) 07/28/24 14:11 LDL Cholesterol, Calc 87 mg/dL (50-129) 07/28/24 14:11 HDL Cholesterol 71 mg/dL (60-100) 07/28/24 14:11 LDL/HDL Ratio 1.23 RATIO (0.00-3.22) 07/28/24 14:11 Cholesterol/HDL Ratio 2.48 mg/dL (0.0-4.40) 07/28/24 14:11 Lipase 428 U/L (13-60) H 07/28/24 14:11 Vitamin B12 716 pg/mL (232-1245) 07/30/24 04:42 Folate 19.6 ng/mL (4.8-37.3) 07/30/24 04:42 Procalcitonin 0.46 ng/mL (0-0.5) 08/01/24 04:43 TSH 2.09 uIU/mL (0.27-4.20) 07/28/24 14:11 Urine Color Yellow (Yellow) 07/29/24 04:19 Urine Appearance Clear (CLEAR) 07/29/24 04:19 Urine pH 8.0 (5-7) A 07/29/24 04:19 Ur Specific [place] 1.028 (1.005-1.030) 07/29/24 04:19 Urine Protein 3+ (Negative) A 07/29/24 04:19 Urine Glucose (UA) Negative (Normal) 07/29/24 04:19 Urine Ketones Negative (Negative) 07/29/24 04:19 Urine Blood Negative (Negative) 07/29/24 04:19 Urine Nitrate Negative (Negative) 07/29/24 04:19 Urine Bilirubin Negative (Negative) 07/29/24 04:19 Urine Urobilinogen 1.0 mg/dL (Negative) 07/29/24 04:19 Ur Leukocyte Esterase Negative (Negative) 07/29/24 04:19 Urine RBC 15-25 /hpf (0-2) H 07/29/24 04:19 Urine WBC 0-4 /hpf (0-5) H 07/29/24 04:19 Ur Squamous Epith Cells 15-25 /hpf (0-5) H 07/29/24 04:19 Amorphous Sediment Not Reportable 07/29/24 04:19 Urine Bacteria 3+ /hpf (NONE) H 07/29/24 04:19 Urine Mucus 2+ /hpf 07/29/24 04:19 Urine Yeast 1+ /hpf H 07/29/24 04:19 Fluid Color Colorless 07/29/24 05:45 Fluid Appearance Clear 07/29/24 05:45 Fluid Specific Grav 1.010 07/29/24 05:45 Fluid pH 7.5 07/29/24 05:45 Fluid WBC 17 /uL 07/29/24 05:45 Fluid RBC 0 10^3/uL 07/29/24 05:45 Fld Polynuclear WBCs # 0.002 07/29/24 05:45 Fld Polynuclear WBCs % 11.700 % 07/29/24 05:45 Fl Mononucl WBCs #(Auto) 0.015 07/29/24 05:45 Fl Mononuclear % Auto 88.300 % 07/29/24 05:45 Fld Crystal Laterality Nt 07/29/24 05:45 Fluid Glucose 287.0 mg/dL 07/29/24 05:45 Fluid Total Protein 0.3 g/dL 07/29/24 05:45 Fluid Albumin 0.3 g/dL 07/29/24 05:45 Fluid LDH 21 U/L 07/29/24 05:45 Fluid Alk Phosphatase < 5 IU/L 07/29/24 05:45 Fluid Cholesterol < 4 mg/dL (0-200) 07/29/24 05:45 Fluid Triglycerides 35 mg/dL (0-150) 07/29/24 05:45 Fluid Uric Acid 7 mg/dL 07/29/24 05:45 Blood Type A Negative 07/28/24 14:11 Rho(D) Type Rh negative 07/28/24 14:11 Antibody Screen Negative 07/28/24 14:11 Vitals Last Vital Signs Temp 98.0 F 08/01/24 07:27 Pulse 93 08/01/24 07:27 Resp 18 08/01/24 10:37 BP 158/61 08/01/24 07:27 Pulse Ox 97 08/01/24 07:27 O2 Del Method Room Air 08/01/24 07:27 Discharge Plan Discharge Patient Disposition: Xfer SNF Condition: Stable Prescriptions: New amoxicillin-pot clavulanate 875-125 mg tablet 1 tab PO BID 7 Days Qty: 14 0RF Continued tizanidine 2 mg tablet 2 mg PO Q8H PRN (Reason: Spasms) diphenoxylate-atropine 2.5-0.025 mg tablet 1 tab PO QID PRN (Reason: Diarrhea/loose stools) alprazolam 0.5 mg tablet 0.5 mg PO BEDTIME PRN (Reason: Anxiety) potassium chloride 20 mEq tablet,ER particles/crystals 20 meq PO DAILY sodium bicarbonate 650 mg tablet 1,300 mg PO DAILY amlodipine 10 mg tablet 10 mg PO DAILY pantoprazole 40 mg tablet,delayed release (DR/EC) 40 mg PO QAM promethazine 25 mg tablet 25 mg PO BID PRN (Reason: nausea/emesis) sertraline 25 mg tablet 25 mg PO BEDTIME gentamicin 0.1 % cream See Rx Instructions .ROUTE .COMPLEX Rx Instructions: Apply topically to exit site and cover with split sponge daily at bedtime. aspirin 81 mg tablet,chewable 81 mg PO DAILY hydroxyzine HCl 25 mg tablet 25 mg PO BEDTIME Nephro-Cayden 0.8 mg tablet 1 tab PO DAILY Creon 6,000-19,000 -30,000 unit capsule,delayed release(DR/EC) 1 cap PO TID menthol-zinc oxide [Calmoseptine] 0.44-20.6 % ointment See Rx Instructions .ROUTE .COMPLEX Rx Instructions: Apply topically to all red areas as directed every shift. heparin (porcine) 1,000 unit/mL Solution See Rx Instructions .ROUTE .COMPLEX Rx Instructions: Inject 6ml at bedtime as needed, Add 6ml to each dialysate bag as needed noting fibrin. ([place]) bisacodyl [Dulcolax (bisacodyl)] 10 mg Suppository See Rx Instructions .ROUTE .COMPLEX PRN (Reason: Constipation) Rx Instructions: Insert 1 suppository rectally daily as needed if no bm in 3 days. acetaminophen 325 mg Tablet 650 mg PO QID PRN (Reason: Pain) Changed hydralazine 25 mg tablet 25 mg PO Q8H 30 Days Qty: 90 0RF Discharge Orders: Discharge Order (Routine); Ordered 08/01/24 Ordered By: Luke Archibald Referrals: [facility] [Outside] Jose F Jones MD [Family Provider] - Asif Grijalva [Primary Care Provider] - Discharge Diet: Cardiac Discharge Activity: Resume usual activity Patient Instructions: GI Post Discharge Instructions w/ Anesthesia, Opioid Safety Activity Restrictions/Additional Instructions: - Please hydrate well -Drink plenty of electrolyte balanced fluids -If you develop recurrent abdominal pain come back to the emergency room -If you develop recurrent bloody or black stools or coffee-ground emesis please come back to the emergency room Discharge Attestations Time Spent in Discharge Care*: greater than 30 min Quality Metrics Clinical Quality Measures [ No reported AMI, CVA or VTE this stay] Coding Level of Care Code 50329 Total time (in minutes) for Discharge: 45 Diagnoses End stage renal disease on dialysis N18.6; Z99.2
[2024-08-01 11:28] LABS: SARS Covid-2 Antigen Negative (Negative)
--- NOTE | 2024-08-01 11:53 | PC.SOCIAL ---
IMM Updated Updated pt's via phone, on IMM. No questions voiced. Provided pt a copy. Initialed, dated, & timed copy in chart.
[2024-08-02 11:30] LABS: Amylase, Peritoneal Fluid 24 U/L
== END 2024-08-01 14:20 | disposition skilled nursing facility (03) | DRG 391 ==
LOC: ER 15:25 → MEDSURG 15:45
PROVIDERS: Student in an Organized Health Care Education/Training Program; Admitting Provider Family Medicine; Emergency Provider Emergency Medicine; Family Provider Internal Medicine; PCP Physician Assistant Medical; Visit Provider Family Medicine
PROC: 0DJ08ZZ Inspection of Upper Intestinal Tract, Via Natural or Artificial Opening Endoscopic (ICD-10-PCS; CPT 43235; principal; 2024-07-31 12:30)
DX: K29.60 Other gastritis without bleeding (principal); N18.6 End stage renal disease; K92.1 Melena; I12.0 Hypertensive chronic kidney disease with stage 5 chronic kidney disease or end stage renal disease; E85.81 Light chain (AL) amyloidosis; E11.22 Type 2 diabetes mellitus with diabetic chronic kidney disease; F41.9 Anxiety disorder, unspecified; M32.9 Systemic lupus erythematosus, unspecified; D63.1 Anemia in chronic kidney disease; E87.6 Hypokalemia; L89.152 Pressure ulcer of sacral region, stage 2; Z99.2 Dependence on renal dialysis; Z79.82 Long term (current) use of aspirin; Z85.038 Personal history of other malignant neoplasm of large intestine; Z86.19 Personal history of other infectious and parasitic diseases; Z90.49 Acquired absence of other specified parts of digestive tract
CPT/HCPCS: 36415; 36416; 43235; 71045; 74018; 74177; 80048; 80053; 80061; 80503; 81001; 82042; 82150; 82465; 82607; 82728; 82746; 82945; 82962; 82977; 83036; 83540; 83550; 83605; 83615; 83690; 83735; 83986; 84075; 84100; 84145; 84157; 84315; 84443; 84478; 84560; 85014; 85018; 85025; 85610; 85651; 85730; 86140; 86850; 86900; 87040; 87070; 87075; 87205; 87426; 89050; 96372; 96374; 97110; 97116; 97161; 97167; 97530; 97535; 99285; J0360; J1644; J1815; J2270; J2470; J2543; J2704; J3480; J7030; Q3014

== ENCOUNTER 2024-08-02 13:47 | Emergency (ER) | payer MEDICARE, MEDICAID, SELFPAY ==
[2024-08-02] VITALS (9 sets, daily range): BP systolic 158–189; BP diastolic 70–84; PULSE 85–98; RESP 12–21; TEMP 37.4; O2SAT 96–98
--- NOTE | 2024-08-02 13:58 | ECG_ITS ---
[facility] Test Date: 2024-08-02 Pat Name: Ashleigh Adan Department: Room: Gender: Female [employer]: : 1945 Requested By: Ifeanyi Hebert Order Number: [id number] Reading MD: ABEL JAQUEZ Measurements Intervals [place] Rate: 93 P: 49 DE: 145 QRS: 22 QRSD: 76 T: 67 QT: 366 QTc: 457 Interpretive Statements SINUS RHYTHM SEPTAL MYOCARDIAL INFARCTION , OF INDETERMINATE AGE [40+ ms Q WAVE IN V1/V2] Compared to ECG 01/30/2017 13:23:52 Myocardial infarct finding now present Sinus arrhythmia no longer present Electronically Signed On 08-04-2024 19:27:37 [employer] by ABEL JAQUEZ [email or web address]
--- NOTE | 2024-08-02 14:02 | ED_ITS ---
HPI - Weakness 2 General: Chief complaint: Weakness Stated complaint: abd pain; weakness Time Seen by Provider: 08/02/24 13:56 History of Present Illness: 78-year-old female presents emergency ro om from the half-way via EMS. Patient reporting weakness and abdominal pain. Patient was recently hospitalized for abdominal pain nausea. She does have peritoneal dialysis. Blood and peritoneal cultures were negative. She had an elevated white count when she is first admitted it trended down rather steadily. She was kept here for 4 days. She was discharged home on Augmentin for gastroenteritis. She continues to have difficulty eating she was discharged home yesterday. No fever sweats or chills. No hematemesis coffee-ground emesis. There was concern about upper GI bleed and she had an EGD done , no significant abnormality in the stomach of the duodenum according to the report which was reviewed in the chart. Associated symptoms: Reports nausea; Denies chest pain, chills, dysuria or fever(s) Review of Systems 2 Const: Reports: fatigue and malaise; Denies: fever(s) or chills Card: Denies: chest pain Resp: Denies: dyspnea GI: Reports: abdominal pain and nausea : Denies: dysuria, urinary frequency or urinary urgency Musc: Denies: neck pain or back pain Skin/Breast: Denies: rash PFSH ED 2 PFSH: Medical History History of colon cancer Type 2 diabetes mellitus Surgical History History of colectomy Social History Smoking and tobacco/nicotine status: never used tobacco/nicotine Alcohol intake: never Substance/Drug Use: never Physical Exam 2 Const: GENERAL APPEARANCE: cooperative ORIENTATION/CONSCIOUSNESS: Yes awake, Yes oriented to person, Yes oriented to place and Yes oriented to time HENMT: COMMON NORMALS: normocephalic, atraumatic and hearing grossly normal bilaterally HEAD & SCALP: normocephalic and atraumatic Resp: COMMON NORMALS: normal respiratory effort, No retractions, No use of accessory muscles and clear to auscultation bilaterally AUSCULTATION: clear to auscultation bilaterally Cardio: COMMON NORMALS: regular rate, regular rhythm and No murmurs present (Cardio) RATE: regular rate RHYTHM: regular rhythm GI: COMMON NORMALS: No hepatosplenomegaly present AUSCULTATION: Yes normoactive bowel sounds PALPATION: Yes Tenderness to palpation present (GI) (Mild diffuse), No Guarding due to palpation present (GI) and Yes No hepatosplenomegaly present OTHER: Peritoneal dialysis catheter appears normal there is no sign of irritation or erythema or induration. Extremity: COMMON NORMALS: normal to inspection, capillary refill normal, no clubbing, cyanosis or edema, no calf tenderness and no pedal edema Neuro: SENSORIUM/ORIENTATION: Yes oriented to person, Yes oriented to place and Yes oriented to time Skin: COMMON NORMALS: no rashes or lesions noted GENERAL SKIN EXAM: no rashes or lesions noted Course 2 Vital Signs: Vital signs: Vital Signs Temperature 99.3 F 08/02/24 13:48 Pulse Rate 93 08/02/24 18:23 Respiratory Rate 12 08/02/24 16:30 Blood Pressure 173/80 08/02/24 18:23 Pulse Oximetry 96 08/02/24 18:23 Oxygen Delivery Me thod Room Air 08/02/24 13:48 MDM - Weakness Medical Decision Making Labs and imaging reviewed no acute findings or other labs are outside the normal range however there on track to where they have been in the past several are improved from when she was discharged. She remains anemic which is not unusual given her history of renal disease. No signs of acute SBP. Cultures from recent hospitalization are normal there is no sign of cystitis. I reviewed the discharge summary and the notes from recent hospitalization. I suspect was probably making it difficult for her to eat his side effects from the oral Augmentin. Given all the cultures normal there is no leukocytosis no signs of infection now would recommend just stopping and I think it will improve her appetite and ability to tolerate food. She can follow-up with her primary care doctor. Return if she has further problems. Medical Records I reviewed the patient's medical records. Lab Data I reviewed the patient's lab results. 08/02/24 13:50 08/02/24 13:50 Laboratory Results WBC 10.11 10^3/uL (3.29-11.43) 08/02/24 13:50 RBC 2.78 10^6/uL (3.85-5.65) L 08/02/24 13:50 Hgb 9.00 g/dL (11.27-16.99) L 08/02/24 13:50 Hct 27.8 % (36-47) L 08/02/24 13:50 MCV 100.0 fl (85-98) H 08/02/24 13:50 MCH 32.4 pg (27-33) 08/02/24 13:50 MCHC 32.4 g/dL (30-55) 08/02/24 13:50 RDW 16.2 % (12.1-15.1) H 08/02/24 13:50 Plt Count 437 10^3/cmm (157-399) H 08/02/24 13:50 MPV 9.9 fL (7.4-10.4) 08/02/24 13:50 Neut % (Auto) 69.4 % 08/02/24 13:50 Lymph % (Auto) 17.8 % 08/02/24 13:50 Wilkinson % (Auto) 10.2 % 08/02/24 13:50 Eos % (Auto) 1.7 % 08/02/24 13:50 Baso % (Auto) 0.3 % 08/02/24 13:50 Neut # (Auto) 7.02 10^3/uL (1.8-7.7) 08/02/24 13:50 Lymph # (Auto) 1.8 10^3/uL (0.8-4.8) 08/02/24 13:50 Wilkinson # (Auto) 1.0 10^3/uL (0.2-0.9) H 08/02/24 13:50 Eos # (Auto) 0.2 10^3/uL (0.0-0.8) 08/02/24 13:50 Baso # (Auto) 0.0 10^3/uL (0.0-0.1) 08/02/24 13:50 Nucleated RBC % (auto) 0.3 % 08/02/24 13:50 Nucleated RBCs # 0.0 /100WBC 08/02/24 13:50 Sodium 135 mmol/L (136-145) L 08/02/24 13:50 Potassium 3.3 mmol/L (3.5-5.1) L 08/02/24 13:50 Chloride 99 mmol/L (98-107) 08/02/24 13:50 Carbon Dioxide 21 mmol/L (22-29) L 08/02/24 13:50 Anion Gap 18.3 (5-19) 08/02/24 13:50 BUN 36 mg/dL (8-23) H 08/02/24 13:50 Creatinine 5.3 mg/dL (0.5-0.9) H 08/02/24 13:50 GFR Calculation Not Reportable 08/02/24 13:50 Glucose 97 mg/dL (65-115) 08/02/24 13:50 Calculated Osmolality 288 mOsm/kg (285-295) 08/02/24 13:50 Lactic Acid 1.1 mmol/L (0.5-2.2) 08/02/24 13:50 Calcium 8.8 mg/dL (8.5-10.5) 08/02/24 13:50 Total Bilirubin 0.2 mg/dL (0.15-1.2) 08/02/24 13:50 AST 19 U/L (0-32) 08/02/24 13:50 ALT 14 U/L (0-33) 08/02/24 13:50 Alkaline Phosphatase 119 U/L (35-105) H 08/02/24 13:50 Creatine Kinase 25 U/L (26-192) L 08/02/24 13:50 Troponin T Baseline 70 ng/L (0-10) H 08/02/24 13:50 Troponin T 120 Minute 65.10 ng/L (0-10) H 08/02/24 16:13 Delta Troponin T -4.90 ABS# (0-10) L 08/02/24 16:13 C-Reactive Protein 25.0 mg/L (0.0-4.9) H 08/02/24 13:50 Total Protein 6.4 g/dL (6.6-8.7) L 08/02/24 13:50 Albumin 2.7 g/dL (3.5-5.2) L 08/02/24 13:50 Globulin 3.7 g/dL (1.3-4.6) 08/02/24 13:50 Lipase 76 U/L (13-60) H 08/02/24 13:50 Procalcitonin 0.46 ng/mL (0-0.5) 08/02/24 13:50 Urine Color Yellow (Yellow) 08/02/24 15:01 Urine Appearance Clear (CLEAR) 08/02/24 15:01 Urine pH 8.5 (5-7) A 08/02/24 15:01 Ur Specific [place] 1.017 (1.005-1.030) 08/02/24 15:01 Urine Protein 3+ (Negative) A 08/02/24 15:01 Urine Glucose (UA) Negative (Normal) 08/02/24 15:01 Urine Ketones Negative (Negative) 08/02/24 15:01 Urine Blood Negative (Negative) 08/02/24 15:01 Urine Nitrate Negative (Negative) 08/02/24 15:01 Urine Bilirubin Negative (Negative) 08/02/24 15:01 Urine Urobilinogen 0.2 mg/dL (Negative) 08/02/24 15:01 Ur Leukocyte Esterase Negative (Negative) 08/02/24 15:01 Urine RBC 0-2 /hpf (0-2) 08/02/24 15:01 Urine WBC 0-5 /hpf (0-5) 08/02/24 15:01 Ur Squamous Epith Cells 0-5 /hpf (0-5) 08/02/24 15:01 Amorphous Sediment Not Reportable 08/02/24 15:01 Urine Bacteria None seen /hpf (NONE) 08/02/24 15:01 Hyaline Casts 2.46 /lpf 08/02/24 15:01 All radiology interpretation(s) finalized by discharge Discharge Plan Discharge Patient Disposition: Home Clinical Impression: Medication side effect, End stage renal disease on dialysis, Type 2 diabetes mellitus, Hypertension Condition: Stable Prescriptions: Discontinued amoxicillin-pot clavulanate 875-125 mg tablet 1 tab PO BID 7 Days Qty: 14 0RF No Action tizanidine 2 mg tablet 2 mg PO Q8H PRN (Reason: Spasms) diphenoxylate-atropine 2.5-0.025 mg tablet 1 tab PO QID PRN (Reason: Diarrhea/loose stools) alprazolam 0.5 mg tablet 0.5 mg PO BEDTIME PRN (Reason: Anxiety) potassium chloride 20 mEq tablet,ER particles/crystals 20 meq PO DAILY sodium bicarbonate 650 mg tablet 1,300 mg PO DAILY amlodipine 10 mg tablet 10 mg PO DAILY pantoprazole 40 mg tablet,delayed release (DR/EC) 40 mg PO QAM promethazine 25 mg tablet 25 mg PO BID PRN (Reason: nausea/emesis) sertraline 25 mg tablet 25 mg PO BEDTIME gentamicin 0.1 % cream See Rx Instructions .ROUTE .COMPLEX Rx Instructions: Apply topically to exit site and cover with split sponge daily at bedtime. aspirin 81 mg tablet,chewable 81 mg PO DAILY hydroxyzine HCl 25 mg tablet 25 mg PO BEDTIME Nephro-Acyden 0.8 mg tablet 1 tab PO DAILY Creon 6,000-19,000 -30,000 unit capsule,delayed release(DR/EC) 1 cap PO TID menthol-zinc oxide [Calmoseptine] 0.44-20.6 % ointment See Rx Instructions .ROUTE .COMPLEX Rx Instructions: Apply topically to all red areas as directed every shift. heparin (porcine) 1,000 unit/mL Solution See Rx Instructions .ROUTE .COMPLEX Rx Instructions: Inject 6ml at bedtime as needed, Add 6ml to each dialysate bag as needed noting fibrin. ([place]) bisacodyl [Dulcolax (bisacodyl)] 10 mg Suppository See Rx Instructions .ROUTE .COMPLEX PRN (Reason: Constipation) Rx Instructions: Insert 1 suppository rectally daily as needed if no bm in 3 days. acetaminophen 325 mg Tablet 650 mg PO QID PRN (Reason: Pain) hydralazine 25 mg tablet 25 mg PO Q8H 30 Days Qty: 90 0RF sucralfate [Carafate] 1 gram tablet 1 g PO BID 28 Days Qty: 56 0RF Discharge Orders: Discharge ED (Routine); Ordered 08/02/24 Ordered By: Ifeanyi Lundy Referrals: Jose F Jones MD [Family Provider] - Asif Grijalva [Primary Care Provider] - Discharge Diet: Usual diet Discharge Activity: Increase activity as tolerated Patient Instructions: Opioid Safety, Pain Management Activity Restrictions/Additional Instructions: Thank you for choosing [facility] for your healthcare needs today. It is very important that you follow up as instructed or that you return to the Emergency Department should you have concerns or if your condition changes or worsens in any way. You are seen in the emergency room with complaints of generally not feeling well. Urine today was normal we reviewed your previous hospitalization. Cardiac enzymes were negative. Your other laboratories had some abnormalities but they were not clinically significant they were at the usual levels that we have seen on your labs in the past. Several of them had actually improved some from yesterday when you were discharged. Suspect that your symptoms are due to side effects from GI upset from the Augmentin. This antibiotic is very typical for stomach upset. Recommend stopping the antibiotic as all the cultures at the last hospitalization in the urine today were normal. Coding Level of Care Code ED Client Evaluator for Chg Fwd Related Data Home Medications Medication Instructions Recorded Confirmed acetaminophen 325 mg tablet 650 mg PO QID PRN Pain 07/28/24 07/28/24 alprazolam 0.5 mg tablet 0.5 mg PO BEDTIME PRN Anxiety 07/28/24 07/28/24 amlodipine 10 mg tablet 10 mg PO DAILY 07/28/24 07/28/24 aspirin 81 mg chewable tablet 81 mg PO DAILY 07/28/24 07/28/24 bisacodyl 10 mg rectal suppository See Rx Instructions .Route 07/28/24 07/28/24 (Dulcolax (bisacodyl)) .COMPLEX PRN Constipation diphenoxylate-atropine 2.5 1 tab PO QID PRN Diarrhea/loose 07/28/24 07/28/24 mg-0.025 mg tablet stools gentamicin 0.1 % topical cream See Rx Instructions .Route .COMPLEX 07/28/24 07/28/24 heparin (porcine) 1,000 unit/mL See Rx Instructions .Route .COMPLEX 07/28/24 07/28/24 injection solution hydroxyzine HCl 25 mg tablet 25 mg PO BEDTIME 07/28/24 07/28/24 dxgrps-bivjemfl-[id number] 1 cap PO TID 07/28/24 07/28/24 6,000-19,000-30,000 unit capsule,delayed rel (Creon) menthol 0.44 %-zinc oxide 20.6 % See Rx Instructions .Route .COMPLEX 07/28/24 07/28/24 topical ointment (Calmoseptine) pantoprazole 40 mg tablet,delayed 40 mg PO QAM 07/28/24 07/28/24 release potassium chloride 20 mEq 20 meq PO DAILY 07/28/24 07/28/24 tablet,extended release(part/cryst) promethazine 25 mg tablet 25 mg PO BID PRN nausea/emesis 07/28/24 07/28/24 sertraline 25 mg tablet 25 mg PO BEDTIME 07/28/24 07/28/24 sodium bicarbonate 650 mg tablet 1,300 mg PO DAILY 07/28/24 07/28/24 tizanidine 2 mg tablet 2 mg PO Q8H PRN Spasms 07/28/24 07/28/24 vitamin B complex-vitamin C-folic 1 tab PO DAILY 07/28/24 07/28/24 acid 0.8 mg tablet (Nephro-Cayden) Previous Rx's Medication Instructions Recorded hydralazine 25 mg tablet 25 mg PO Q8H bp 30 days #90 tabs 08/01/24 sucralfate 1 gram tablet (Carafate) 1 g PO BID 4 weeks #56 tabs 08/01/24 Allergies Allergy/AdvReac Type Severity Reaction Status Date / Time cyclobenzaprine Allergy Unknown Verified 07/28/24 13:55 hydrocodone Allergy Unknown Verified 07/28/24 13:55 lisinopril Allergy Unknown Verified 07/28/24 13:55 ondansetron Allergy Unknown Verified 07/28/24 13:55 Flzmtsl-WJA-AnY Reductase Allergy Unknown Verified 07/28/24 13:55 Inhibitor codeine sulfate Allergy Unknown Uncoded 07/28/24 13:55
[2024-08-02 14:03] LABS: Basophils % 0.3 %; Eosinophils # 0.2 10^3/uL (0.0-0.8); Eosinophils % 1.7 %; Hematocrit 27.8 % (36-47); Lymphocytes # 1.8 10^3/uL (0.8-4.8); Lymphocytes % 17.8 %; Mean Corpuscular HGB Conc 32.4 g/dL (30-55); Mean Corpuscular Hemoglobin 32.4 pg (27-33); Mean Platelet Volume 9.9 fL (7.4-10.4); Monocytes % 10.2 %; Neutrophils # 7.02 10^3/uL (1.8-7.7); Neutrophils % 69.4 %; Nucleated Red Blood Cells % 0.3 %; Platelet Count 437 10^3/cmm (157-399); Red Blood Count 2.78 10^6/uL (3.85-5.65); Red Cell Distribution Width 16.2 % (12.1-15.1); White Blood Count 10.11 10^3/uL (3.29-11.43)
[2024-08-02 14:22] LABS: Alanine Aminotransferase 14 U/L (0-33); Albumin Level 2.7 g/dL (3.5-5.2); Alkaline Phosphatase 119 U/L (35-105); Anion Gap 18.3 (5-19); Aspartate Amino Transferase 19 U/L (0-32); Blood Urea Nitrogen 36 mg/dL (8-23); Calcium 8.8 mg/dL (8.5-10.5); Carbon Dioxide 21 mmol/L (22-29); Chloride 99 mmol/L (98-107); Creatine Phosphokinase 25 U/L (26-192); Creatinine Clr Calc Pharmacy 7.4673; Globulin 3.7 g/dL (1.3-4.6); Glucose 97 mg/dL (65-115); Lipase 76 U/L (13-60); Osmolality Calculated 288 mOsm/kg (285-295); Potassium 3.3 mmol/L (3.5-5.1); Sodium 135 mmol/L (136-145); Total Bilirubin 0.2 mg/dL (0.15-1.2); Total Protein 6.4 g/dL (6.6-8.7); Troponin(5th) Baseline 70 ng/L (0-10)
[2024-08-02 14:23] LABS: Lactic Sepsis W/Reflex 1.1 mmol/L (0.5-2.2)
[2024-08-02 14:47] LABS: Procalcitonin 0.46 ng/mL (0-0.5)
[2024-08-02 15:08] LABS: Bilirubin Urine Negative (Negative); Blood Urine Negative (Negative); Glucose Urine UA Negative (Normal); Ketones Urine Negative (Negative); Leukocyte Esterase Urine Negative (Negative); Nitrate Urine Negative (Negative); Protein Urine 3+ (Negative); Specific Gravity, Urine 1.017 (1.005-1.030); Urine Appearance Clear (CLEAR); Urine Color Yellow (Yellow); Urobilinogen Urine 0.2 mg/dL (Negative); pH Urine 8.5 (5-7)
[2024-08-02 15:10] LABS: Add Urine Microscopic? YES; Bacteria Urine None Seen /hpf; Hyaline Casts Urine 2.46 /lpf; RBC Urine 0-2 /hpf (0-2); Squamous Epithelial Cell Urine 0-5 /hpf (0-5); WBC Urine 0-5 /hpf (0-5)
== END 2024-08-02 22:17 | disposition home or self-care (01) ==
PROVIDERS: Emergency Provider Family Medicine; Family Provider Internal Medicine; PCP Physician Assistant Medical
DX: T50.905A Adverse effect of unspecified drugs, medicaments and biological substances, initial encounter (principal); X58.XXXA Exposure to other specified factors, initial encounter; E11.22 Type 2 diabetes mellitus with diabetic chronic kidney disease; I12.9 Hypertensive chronic kidney disease with stage 1 through stage 4 chronic kidney disease, or unspecified chronic kidney disease; N18.9 Chronic kidney disease, unspecified; Z79.82 Long term (current) use of aspirin; Z85.038 Personal history of other malignant neoplasm of large intestine
CPT/HCPCS: 36415; 80053; 81001; 82550; 83605; 83690; 84145; 84484; 85025; 86140; 87040; 93005; 99284

== ENCOUNTER 2024-09-23 11:33 | Emergency (ER) | payer MEDICARE, MEDICAID, SELFPAY ==
[2024-09-23 11:34] VITALS: BP 168/84; PULSE 108; RESP 18; TEMP 37.1; O2SAT 99; BMI 21.6
--- NOTE | 2024-09-23 11:36 | XRR_ITS ---
PROCEDURE INFORMATION: Exam: XR Right Elbow Exam date and time: 09/23/2024 11:39 AM Age: 79 years old Clinical indication: Injury or trauma; Fall; Blunt trauma (contusions or hematomas); Elbow; Right TECHNIQUE: Imaging protocol: Radiologic exam of the right elbow. Views: 3 or more views. COMPARISON: No relevant prior studies available. FINDINGS: Bones/joints: No acute osseous, joint, or soft tissue abnormality. No joint effusion. Soft tissues: See Bones/joints finding. XR/XR elbow RT min 3V* [id number] IMPRESSION: No acute traumatic injury.
--- NOTE | 2024-09-23 11:53 | XRR_ITS ---
PROCEDURE INFORMATION: Exam: XR Right Shoulder Exam date and time: 09/23/2024 11:56 AM Age: 79 years old Clinical indication: Injury or trauma; Fall; Blunt trauma (contusions or hematomas); Shoulder; Right TECHNIQUE: Imaging protocol: Radiologic exam of the right shoulder. Views: 2 or more views. COMPARISON: CR XR elbow RT min 3V* [id number] 09/23/2024 11:39 AM FINDINGS: Bones/joints: Moderate acromioclavicular and glenohumeral spurring. No fracture or dislocation. No acute osseous or joint abnormality. Soft tissues: Normal. XR/XR shoulder RT min 2V* [id number] IMPRESSION: No acute findings.
--- NOTE | 2024-09-23 11:53 | XRR_ITS ---
PROCEDURE INFORMATION: Exam: XR Right Hip Exam date and time: 09/23/2024 11:59 AM Age: 79 years old Clinical indication: Injury or trauma; Fall; Blunt trauma (contusions or hematomas); Right; Hip TECHNIQUE: Imaging protocol: Radiologic exam of the right hip. Views: 1 view hip with pelvis when performed. COMPARISON: CT abdomen pelvis w con* [id number] 07/28/2024 4:10 PM FINDINGS: Bones/joints: Moderate acromioclavicular and glenohumeral spurring. No fracture or dislocation. Catheter coiled in the low pelvis is probably a dialysis catheter.. No acute fracture. Soft tissues: Unremarkable. XR/XR hip RT 2-3V wo/w pel* [id number] IMPRESSION: No acute findings.
--- NOTE | 2024-09-23 11:55 | ED_ITS ---
HPI - Fall General: Chief Complaint: Fall Stated Complaint: Fall, R hip /Elbow Pain Time Seen by Provider: 09/23/24 11:36 History of Present Illness: 79-year-old female presents emergency ro om from the [place] [facility] via ambulance. Patient reports she fell last night she is complaining of right hip and right elbow pain per the nursing report there is also complaint of right shoulder pain. Patient was able to bear weight after the fall. Was a ground-level mechanical fall she said she tripped over the hand cranks on her bed. She did not strike her head she did not lose consciousness she has a bruise in the medial aspect of her right elbow she had a bit little bit of right hip pain but was able to stand she is moving all extremities no significant pain with active or passive range of motion. Associated symptoms-after fall: Denies abdominal pain, chest pain or neck pain Related Data Home Medications Medication Instructions Recorded Confirmed acetaminophen 325 mg tablet 650 mg PO QID PRN Pain 07/28/24 09/23/24 amlodipine 10 mg tablet 10 mg PO DAILY 07/28/24 09/23/24 aspirin 81 mg chewable tablet 81 mg PO DAILY 07/28/24 09/23/24 diphenoxylate-atropine 2.5 1 tab PO QID PRN Diarrhea/loose 07/28/24 09/23/24 mg-0.025 mg tablet stools gentamicin 0.1 % topical cream See Rx Instructions .Route .COMPLEX 07/28/24 09/23/24 hydroxyzine HCl 25 mg tablet 25 mg PO BEDTIME 07/28/24 09/23/24 sdtmis-hzshorkj-ueziabz 1 cap PO TID 07/28/24 09/23/24 6,000-19,000-30,000 unit capsule,delayed rel (Creon) menthol 0.44 %-zinc oxide 20.6 % See Rx Instructions .Route .COMPLEX 07/28/24 09/23/24 topical ointment (Calmoseptine) potassium chloride 20 mEq 20 meq PO DAILY 07/28/24 09/23/24 tablet,extended release(part/cryst) sertraline 25 mg tablet 25 mg PO BEDTIME 07/28/24 09/23/24 sodium bicarbonate 650 mg tablet 1,300 mg PO DAILY 07/28/24 09/23/24 tizanidine 2 mg tablet 2 mg PO Q8H PRN Spasms 07/28/24 09/23/24 vitamin B complex-vitamin C-folic 1 tab PO DAILY 07/28/24 09/23/24 acid 0.8 mg tablet (Nephro-Cayden) alprazolam 0.25 mg tablet 0.25 mg PO QPM 09/23/24 09/23/24 omeprazole 20 mg capsule,delayed 20 mg PO DAILY 09/23/24 09/23/24 release Previous Rx's Medication Instructions Recorded hydralazine 25 mg tablet 25 mg PO Q8H bp 30 days #90 tabs 08/01/24 Allergies Allergy/AdvReac Type Severity Reaction Status Date / Time cyclobenzaprine Allergy Unknown Verified 07/28/24 13:55 hydrocodone Allergy Unknown Verified 07/28/24 13:55 lisinopril Allergy Unknown Verified 07/28/24 13:55 ondansetron Allergy Unknown Verified 07/28/24 13:55 Nlmccwg-UIZ-IlU Reductase Allergy Unknown Verified 07/28/24 13:55 Inhibitor codeine sulfate Allergy Unknown Uncoded 07/28/24 13:55 Review of Systems Const: Denies: fever(s) or chills Card: Denies: chest pain Resp: Denies: dyspnea GI: Denies: abdominal pain : Denies: dysuria, urinary frequency or urinary urgency Musc: Reports: other (Bruising right elbow); Denies: neck pain, back pain, extremity pain or extremity swelling Skin/Breast: Denies: rash PFSH ED PFSH: Medical History History of colon cancer Type 2 diabetes mellitus Surgical History History of colectomy Social History Smoking and tobacco/nicotine status: never used tobacco/nicotine Alcohol intake: never Substance/Drug Use: never Physical Exam Const: GENERAL APPEARANCE: cooperative ORIENTATION/CONSCIOUSNESS: Yes awake, Yes oriented to person, Yes oriented to place and Yes oriented to time HENMT: COMMON NORMALS: normocephalic, atraumatic and hearing grossly normal bilaterally HEAD & SCALP: normocephalic and atraumatic Resp: COMMON NORMALS: normal respiratory effort, No retractions, No use of accessory muscles and clear to auscultation bilaterally AUSCULTATION: clear to auscultation bilaterally Cardio: COMMON NORMALS: regular rate, regular rhythm and No murmurs present (Cardio) RATE: regular rate RHYTHM: regular rhythm GI: COMMON NORMALS: Soft to palpation and No hepatosplenomegaly present AUSCULTATION: Yes normoactive bowel sounds PALPATION: Yes Soft to palpation, No Tenderness to palpation present (GI), No Guarding due to palpation present (GI) and Yes No hepatosplenomegaly present Extremity: COMMON NORMALS: normal to inspection, capillary refill normal, no clubbing, cyanosis or edema, no calf tenderness and no pedal edema OTHER: No deformities. The small area of bruising on the medial aspect of the right elbow neurovascularly intact no sign of ulnar nerve injury in the right arm based on exam. Range of motion on the right arm and right lower leg without pain crepitus or deformity Neuro: SENSORIUM/ORIENTATION: Yes oriented to person, Yes oriented to place and Yes oriented to time Skin: COMMON NORMALS: no rashes or lesions noted GENERAL SKIN EXAM: no rashes or lesions noted Course Vital Signs: Vital signs: Vital Signs Temperature 98.7 F 09/23/24 11:34 Pulse Rate 108 H 09/23/24 11:34 Respiratory Rate 18 09/23/24 11:34 Blood Pressure 168/84 09/23/24 11:34 Pulse Oximetry 99 09/23/24 11:34 Oxygen Delivery Me thod Room Air 09/23/24 11:34 MDM - Fall Medical Decision Making No acute fractures. No other findings on exam. Reviewed imaging reports per radiology will discharge back to [place]. Lab Data Radiology Impressions Elbow X-Ray 09/23/24 11:36 IMPRESSION: No acute traumatic injury. Hip/Pelvis X-Ray 09/23/24 11:53 IMPRESSION: No acute findings. Shoulder X-Ray 09/23/24 11:53 IMPRESSION: No acute findings. All radiology interpretation(s) finalized by discharge Discharge Plan Discharge Patient Disposition: Home Clinical Impression: Fall, Traumatic ecchymosis of right elbow Condition: Stable Prescriptions: No Action tizanidine 2 mg tablet 2 mg PO Q8H PRN (Reason: Spasms) diphenoxylate-atropine 2.5-0.025 mg tablet 1 tab PO QID PRN (Reason: Diarrhea/loose stools) potassium chloride 20 mEq tablet,ER particles/crystals 20 meq PO DAILY sodium bicarbonate 650 mg tablet 1,300 mg PO DAILY amlodipine 10 mg tablet 10 mg PO DAILY sertraline 25 mg tablet 25 mg PO BEDTIME gentamicin 0.1 % cream See Rx Instructions .ROUTE .COMPLEX Rx Instructions: Apply topically to exit site and cover with split sponge daily at bedtime. aspirin 81 mg tablet,chewable 81 mg PO DAILY hydroxyzine HCl 25 mg tablet 25 mg PO BEDTIME Nephro-Cayden 0.8 mg tablet 1 tab PO DAILY Creon 6,000-19,000 -30,000 unit capsule,delayed release(DR/EC) 1 cap PO TID menthol-zinc oxide [Calmoseptine] 0.44-20.6 % ointment See Rx Instructions .ROUTE .COMPLEX Rx Instructions: Apply topically to all red areas as directed every shift. acetaminophen 325 mg Tablet 650 mg PO QID PRN (Reason: Pain) hydralazine 25 mg tablet 25 mg PO Q8H 30 Days Qty: 90 0RF alprazolam 0.25 mg Tablet 0.25 mg PO QPM omeprazole 20 mg capsule,delayed release(DR/EC) 20 mg PO DAILY Discharge Orders: Discharge ED (Routine); Ordered 09/23/24 Ordered By: Ifeanyi Lundy Referrals: Jose F Jones MD [Family Provider] - Asif Grijalva [Primary Care Provider] - Discharge Diet: Usual diet Discharge Activity: Increase activity as tolerated Patient Instructions: Opioid Safety, Pain Management Activity Restrictions/Additional Instructions: Thank you for choosing [facility] for your healthcare needs today. It is very important that you follow up as instructed or that you return to the Emergency Department should you have concerns or if your condition changes or worsens in any way. You are seen after a fall. X-rays of the areas that hurt your right elbow right shoulder and right hip were all negative follow-up with your primary care doctor Coding Level of Care Code ED Refinery Operator Visbreaking for Sergio Ramirez
--- NOTE | 2024-09-23 11:59 | PC.PHAR ---
patient is from [facility]
--- NOTE | 2024-09-23 12:56 | PC.NURSE ---
REPORT CALLED TO [facility] NURSING STAFF.
[2024-09-23 13:01] VITALS: BP 142/89; PULSE 98; O2SAT 100
--- NOTE | 2024-09-23 16:27 | ECG_ITS ---
[facility]: 2024-09-23 Pat Name: Ashleigh Adan Department: Room: Gender: Female Cad Designer Drafter: : 1945 Requested By: Ifeanyi Hebert Order Number: [id number] Reading MD: ABEL JAQUEZ Measurements Intervals [place] Rate: 103 P: 26 NM: 153 QRS: -3 QRSD: 70 T: 58 QT: 356 QTc: 466 Interpretive Statements SINUS TACHYCARDIA NONSPECIFIC T-WAVE ABNORMALITY ABNORMAL RHYTHM ECG Compared to ECG 08/02/2024 14:33:03 T-wave abnormality now present Sinus rhythm no longer present Myocardial infarct finding no longer present Electronically Signed On 09-29-2024 23:28:37 MOLDING ENGINEER by ABEL JAQUEZ [email or web address]
== END 2024-09-23 13:12 | disposition home or self-care (01) ==
PROVIDERS: Emergency Provider Family Medicine; Family Provider Internal Medicine; PCP Physician Assistant Medical
DX: S50.01XA Contusion of right elbow, initial encounter (principal); W19.XXXA Unspecified fall, initial encounter; Z85.038 Personal history of other malignant neoplasm of large intestine; E11.9 Type 2 diabetes mellitus without complications
CPT/HCPCS: 73030; 73080; 73502; 93005; 99284

== ENCOUNTER 2024-09-28 15:36 | Emergency (ER) | payer MEDICARE, MEDICAID, SELFPAY ==
[2024-09-28 15:37] VITALS: BP 151/76; PULSE 96; RESP 18; TEMP 36.7; O2SAT 99; BMI 21.7
[2024-09-28 15:47] VITALS: BP 151/74; RESP 18; O2SAT 95
--- NOTE | 2024-09-28 15:53 | CTR_ITS ---
PROCEDURE INFORMATION: Exam: CT Cervical Spine Without Contrast Exam date and time: 09/28/2024 4:13 PM Age: 79 years old Clinical indication: Injury or trauma; Fall; Blunt trauma; Additional info: Neck injury TECHNIQUE: Imaging protocol: Computed tomography of the cervical spine without contrast. Radiation optimization: All CT scans at this facility use at least one of these dose optimization techniques: automated exposure control; mA and/or kV adjustment per patient size (includes targeted exams where dose is matched to clinical indication); or iterative reconstruction. COMPARISON: CR XR shoulder RT min 2V* [id number] 09/23/2024 11:56 AM RADIATION DOSE METRICS: Total DLP (mGy-cm): 169.17 FINDINGS: Bones: CPPD changes around the dens. The cervical spine demonstrates moderate degenerative changes at multiple levels. Mild anterolisthesis of C3 over C4. No acute fracture. No compression deformity. There is mild curvature of the cervical spine convex to the left. Mild bony canal stenosis at C4-C5. Lungs: Calcified right upper lobe granuloma. Bilateral apical fibrotic changes. Thyroid: Bilateral thyroid nodules measuring up to 2.1 cm in the right thyroid lobe. Vasculature: There are bilateral carotid artery calcified atheromas. Soft tissues: Unremarkable. CT/CT cervical spin wo con* [id number] IMPRESSION: No acute posttraumatic changes in the cervical spine. COMMENTS: Consistent with the [employer]'s Incidental Findings Committee white paper (J Am Luc Radiol 2015): In patients aged 35 years and older with an incidental thyroid nodule equal to or greater than 1.[address], MRI or extrathyroidal US, further evaluation with dedicated thyroid US is recommended for patients with normal life expectancy and without comorbidities. For smaller nodules without suspicious features, no further evaluation or follow up is recommended.
--- NOTE | 2024-09-28 15:53 | XRR_ITS ---
PROCEDURE INFORMATION: Exam: XR Pelvis Exam date and time: 09/28/2024 4:10 PM Age: 79 years old Clinical indication: Right hip; Patient HX: RT pelvic/hip pain post fall TECHNIQUE: Imaging protocol: Radiologic exam of the pelvis. Views: 1 or 2 view. COMPARISON: CR XR hip RT 2-3V wo/w pel* [id number] 09/23/2024 11:59 AM FINDINGS: Tubes, catheters and devices: Dialysis catheter is seen in the pelvis. Bones/joints: Demineralization of the visualized bones, limiting sensitivity for nondisplaced fractures. The pubic symphysis demonstrates mild degenerative changes. There are mild degenerative changes of the hip joints. There are moderate degenerative changes of the sacroiliac joints. Soft tissues: Unremarkable. Vasculature: There are numerous benign phleboliths in the pelvis. XR/XR pelvis 1-2V* [id number] IMPRESSION: No acute fracture or dislocation.
[2024-09-28 17:39] VITALS: RESP 20
[2024-09-28] MEDS: morphine 4 mg/mL SDV 1 mL IM (17:39)
[2024-09-28] MEDS: ondansetron 4 MG Tablet PO (17:41)
[2024-09-28 18:09] VITALS: BP 149/83; PULSE 89; O2SAT 98
--- NOTE | 2024-09-28 19:52 | W.ED.FALL ---
HPI - Fall General: Chief Complaint: Fall Stated Complaint: right hip/shoulder pain s/p fall Time Seen by Provider: 09/28/24 15:41 History of Present Illness: This patient is a 79-year-old white female who presents to the emergency department complaining of neck pain and right groin pain. Patient states she fell at 3 AM this morning and struck her head. She did not lose consciousness. She is not on any blood thinners. Associated symptoms-after fall: Reports neck pain Related Data Home Medications Medication Instructions Recorded Confirmed acetaminophen 325 mg tablet 650 mg PO QID PRN Pain 07/28/24 09/28/24 amlodipine 10 mg tablet 10 mg PO DAILY 07/28/24 09/28/24 aspirin 81 mg chewable tablet 81 mg PO DAILY 07/28/24 09/28/24 diphenoxylate-atropine 2.5 1 tab PO BID PRN Diarrhea/loose 07/28/24 09/28/24 mg-0.025 mg tablet stools gentamicin 0.1 % topical cream See Rx Instructions .Route .COMPLEX 07/28/24 09/28/24 hydroxyzine HCl 25 mg tablet 25 mg PO BEDTIME 07/28/24 09/28/24 dqzcsc-epjiezka-lohsdyl 1 cap PO TID 07/28/24 09/28/24 6,000-19,000-30,000 unit capsule,delayed rel (Creon) menthol 0.44 %-zinc oxide 20.6 % See Rx Instructions .Route .COMPLEX 07/28/24 09/28/24 topical ointment (Calmoseptine) potassium chloride 20 mEq 20 meq PO DAILY 07/28/24 09/28/24 tablet,extended release(part/cryst) sertraline 25 mg tablet 25 mg PO BEDTIME 07/28/24 09/28/24 sodium bicarbonate 650 mg tablet 1,300 mg PO DAILY 07/28/24 09/28/24 tizanidine 2 mg tablet 2 mg PO Q8H PRN Spasms 07/28/24 09/28/24 vitamin B complex-vitamin C-folic 1 tab PO DAILY 07/28/24 09/28/24 acid 0.8 mg tablet (Nephro-Cayden) alprazolam 0.25 mg tablet 0.5 mg PO QPM 09/23/24 09/28/24 omeprazole 20 mg capsule,delayed 20 mg PO DAILY 09/23/24 09/28/24 release Previous Rx's Medication Instructions Recorded hydralazine 25 mg tablet 25 mg PO Q8H bp 30 days #90 tabs 08/01/24 Allergies Allergy/AdvReac Type Severity Reaction Status Date / Time cyclobenzaprine Allergy Unknown Verified 07/28/24 13:55 hydrocodone Allergy Unknown Verified 07/28/24 13:55 lisinopril Allergy Unknown Verified 07/28/24 13:55 ondansetron Allergy Unknown Verified 07/28/24 13:55 Daxumqy-PWF-CsI Reductase Allergy Unknown Verified 07/28/24 13:55 Inhibitor codeine sulfate Allergy Unknown Uncoded 07/28/24 13:55 Review of Systems Musc: Reports: neck pain and other (Right groin/pelvis pain.) PFSH ED PFSH: Medical History History of colon cancer Type 2 diabetes mellitus Surgical History History of colectomy Social History Smoking and tobacco/nicotine status: never used tobacco/nicotine Alcohol intake: never Substance/Drug Use: never Physical Exam Const: COMMON NORMALS: no acute distress, patient oriented x3 and no limitations GENERAL APPEARANCE: cooperative and comfortable HENMT: COMMON NORMALS: normocephalic, atraumatic, Normal nasal mucous membranes and turbinates present, moist oral mucous membranes and oropharynx normal HEAD & SCALP: normal to inspection, normocephalic and atraumatic FACE & SINUS: normal facial exam NOSE: Normal nasal mucous membranes and turbinates present Eye: COMMON NORMALS: Equal, round and reactive pupils present, EOMs intact bilaterally and conjunctivae normal GENERAL EYE: appearance normal, both eyes and all related structures CONJUNCTIVA: Yes conjunctivae normal PUPIL: Yes Equal, round and reactive pupils present Neck/C-Spine: COMMON NORMALS: supple (Some tenderness over the left lateral neck. No bony tenderness) and no JVD Chest: COMMONS NORMALS: normal inspection of the chest Resp: COMMON NORMALS: normal respiratory effort and clear to auscultation bilaterally AUSCULTATION: clear to auscultation bilaterally Cardio: COMMON NORMALS: no JVD, regular rate, regular rhythm, No gallops present (Cardio), No murmurs present (Cardio) and No rub (Cardio) RATE: regular rate RHYTHM: regular rhythm GI: COMMON NORMALS: Normal to inspection, nondistended, normoactive bowel sounds present, Soft to palpation and non-tender AUSCULTATION: Yes normoactive bowel sounds PALPATION: Yes Soft to palpation : COMMON NORMALS: Yes no CVA tenderness BLADDER/KIDNEY EXAM: Yes no CVA tenderness Back/Pelvis: COMMON NORMALS: no CVA tenderness and thoracic and lumbar spine normal to inspection Extremity: COMMON NORMALS: normal to inspection NARRATIVE EXTREMITY EXAM: Full range of motion of both hips with no significant discomfort. Neuro: COMMON NORMALS: patient oriented x3 and CN's II-XII intact bilaterally Psych: COMMON NORMALS: mental status grossly normal, Normal thought process present and cooperative THOUGHT PROCESS: Normal thought process present Skin: COMMON NORMALS: no rashes or lesions noted, turgor normal and no jaundice GENERAL SKIN EXAM: no rashes or lesions noted and turgor normal Course Vital Signs: Vital signs: Vital Signs Temperature 98.1 F 09/28/24 15:37 Pulse Rate 89 09/28/24 18:09 Respiratory Rate 20 H 09/28/24 17:39 Blood Pressure 149/83 09/28/24 18:09 Pulse Oximetry 98 09/28/24 18:09 Oxygen Delivery Me thod Room Air 09/28/24 15:47 MDM - Fall Medical Decision Making X-rays of the pelvis were read by the radiologist as normal. CT scan of the cervical spine was read by the radiologist as no fractures. Patient was given injection of morphine for her pain along with 4 mg of Zofran. [facility] Follow-up with primary care physician as needed. Lab Data Radiology Impressions Cervical Spine CT 09/28/24 15:53 IMPRESSION: No acute posttraumatic changes in the cervical spine. COMMENTS: Consistent with the [employer]'s Incidental Findings Committee white paper (J Am Luc Radiol 2015): In patients aged 35 years and older with an incidental thyroid nodule equal to or greater than 1.[address], MRI or extrathyroidal US, further evaluation with dedicated thyroid US is recommended for patients with normal life expectancy and without comorbidities. For smaller nodules without suspicious features, no further evaluation or follow up is recommended. Pelvis X-Ray 09/28/24 15:53 IMPRESSION: No acute fracture or dislocation. All radiology interpretation(s) finalized by discharge Discharge Plan Discharge Patient Disposition: Home Clinical Impression: Acute cervical myofascial strain Qualifiers: Encounter type: initial encounter Qualified Code(s): S16.1XXA - Strain of muscle, fascia and tendon at neck level, initial encounter Groin strain Qualifiers: Encounter type: initial encounter Laterality: right Qualified Code(s): S76.211A - Strain of adductor muscle, fascia and tendon of right thigh, initial encounter Condition: Stable Prescriptions: No Action tizanidine 2 mg tablet 2 mg PO Q8H PRN (Reason: Spasms) diphenoxylate-atropine 2.5-0.025 mg tablet 1 tab PO BID PRN (Reason: Diarrhea/loose stools) potassium chloride 20 mEq tablet,ER particles/crystals 20 meq PO DAILY sodium bicarbonate 650 mg tablet 1,300 mg PO DAILY amlodipine 10 mg tablet 10 mg PO DAILY sertraline 25 mg tablet 25 mg PO BEDTIME gentamicin 0.1 % cream See Rx Instructions .ROUTE .COMPLEX Rx Instructions: Apply topically to exit site and cover with split sponge daily at bedtime. aspirin 81 mg tablet,chewable 81 mg PO DAILY hydroxyzine HCl 25 mg tablet 25 mg PO BEDTIME Nephro-Cayden 0.8 mg tablet 1 tab PO DAILY Creon 6,000-19,000 -30,000 unit capsule,delayed release(DR/EC) 1 cap PO TID menthol-zinc oxide [Calmoseptine] 0.44-20.6 % ointment See Rx Instructions .ROUTE .COMPLEX Rx Instructions: Apply topically to all red areas as directed every shift. acetaminophen 325 mg Tablet 650 mg PO QID PRN (Reason: Pain) hydralazine 25 mg tablet 25 mg PO Q8H 30 Days Qty: 90 0RF alprazolam 0.25 mg Tablet 0.5 mg PO QPM omeprazole 20 mg capsule,delayed release(DR/EC) 20 mg PO DAILY Discharge Orders: Discharge ED (Routine); Ordered 09/28/24 Ordered By: Dallin Jones Referrals: Asif Grijalva [Primary Care Provider] - Patient Instructions: Pain Management Coding Level of Care Code ED Barrel Ded[employer] Machine Operator for Jaeg Ashley
== END 2024-09-28 18:09 | disposition home or self-care (01) ==
PROVIDERS: Emergency Provider Emergency Medicine; PCP Physician Assistant Medical
DX: S16.1XXA Strain of muscle, fascia and tendon at neck level, initial encounter (principal); S76.211A Strain of adductor muscle, fascia and tendon of right thigh, initial encounter; Z79.82 Long term (current) use of aspirin; Z85.038 Personal history of other malignant neoplasm of large intestine; E11.9 Type 2 diabetes mellitus without complications; W19.XXXA Unspecified fall, initial encounter
CPT/HCPCS: 72125; 72170; 96372; 99284; J2270; Q0162